=== PATIENT | male | born 1940 | race Caucasian/White ===

== ENCOUNTER 2021-05-17 08:56 | Outpatient (CLI) | payer MEDICARE, SELFPAY ==
--- NOTE | 2021-05-17 09:15 | CT_ITS ---
WS: [id number] CT CHEST, ABDOMEN AND PELVIS WITH CONTRAST HISTORY: ABNORMAL WEIGHT LOSS TECHNIQUE: Contiguous 5 mm axial imaging performed through the chest, abdomen and pelvis with IV cont rast, oral contrast has been provided. Coronal and sagittal reformats chest. Coronal and sagittal ref ormats through the abdomen and pelvis. All CT scans at [facility] use at least one of the se dose optimization techniques: automated exposure control; mA and/or kV adjustment per patient size (includes targeted exams where dose is matched to clinical indication); or iterative reconstruction. CONTRAST: Omnipaque 300; 95 mL IV. DLP: 2217.88 mGycm COMPARISON: 02/07/[address]: Large heterogeneous RIGHT substernal thyroid. The RIGHT gland is enlarged and extends over length of at least 7.4 cm into the upper mediastinum with displacement of the esophagus. Transverse d iameter of 3.7 cm and AP diameter of 4.5 cm. 2 mm nodule in the anterior LEFT upper lobe, image 26 of series 4. No suspicious pulmonary mass or nodule. No pericardial or pleural effusions. Very mild ath erosclerosis thoracic aorta. Pulmonary artery size is equal to the aorta. Benign calcified RIGHT kumar r lymph nodes. Esophagus is negative. Mild thoracic spondylosis. No destructive bone lesions. Abdomen CT: Contrast opacification is somewhat limited. No enhancing lesions are noted within the josseline er. There is a filling defect in the central lumen of the gallbladder consistent with a stone which w as also noted on the prior exam. Mild atrophy of the pancreas. No pancreatic mass. Normal size spleen with granulomata. No adrenal mass. No renal obstruction. Exophytic cyst measures 1.6 cm from the med ial RIGHT kidney, similar to the prior study also. No ascites or adenopathy. Partially calcified abdo angie aorta. 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 No GI tract obstruction. Prior appendectomy. There is moderate fecal retention throughout the colon. Pelvic CT: Mild thickening of the urinary bladder. Prostate gland is enlarged and encroaches into the bladder. Prostate measures 5.4 x 5.2 x 4.3 cm. No ascites or adenopathy within the pelvis. No destructive bone lesions. Sclerotic bone island in the LEFT femoral neck. CT/CT chest abd pel w con* IMPRESSION: 1. Large mass associated with the RIGHT thyroid extends substernal. 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 For further evaluation thyroid ultrasound can be obtained. 2. No suspicious pulmonary mass or adenopathy. 3. No metastatic disease noted within the abdomen or pelvis. 4. Cholelithiasis without evidence for acute cholecystitis. 5. Atherosclerosis thoracic and abdominal aortas and a small splenic artery ca lcified aneurysm. 6. Prior appendectomy. 7. Moderate fecal retention. 8. Prostate and gland enlargement.
[2021-05-17] MEDS: iohexol 300 mg/mL 50 mL Btl PO (09:16)
[2021-05-17 10:33] LABS: Blood Urea Nitrogen 15 mg/dL (8-23)
[2021-05-17] MEDS: iohexol 300 mg/mL 100 mL Btl IV (10:51)
== END 2021-05-17 08:57 | disposition home or self-care (01) ==
PROVIDERS: PCP Family Medicine; Visit Provider Family Medicine
DX: R63.4 Abnormal weight loss (principal); N40.0 Benign prostatic hyperplasia without lower urinary tract symptoms; K59.00 Constipation, unspecified; Q42.8 Congenital absence, atresia and stenosis of other parts of large intestine; I70.0 Atherosclerosis of aorta; K80.20 Calculus of gallbladder without cholecystitis without obstruction; E07.9 Disorder of thyroid, unspecified
CPT/HCPCS: 71260; 74177; 82565; 84520; Q9967

== ENCOUNTER → 2021-05-31 13:48 | Outpatient (BNVA) | payer MEDICARE, SELFPAY | PROVIDERS: PCP Family Medicine; Visit Provider Urology | DX: N40.1 Benign prostatic hyperplasia with lower urinary tract symptoms (principal); Z12.5 Encounter for screening for malignant neoplasm of prostate; G20 Parkinson's disease; R35.1 Nocturia | CPT/HCPCS: 81003; G0103 ==

== ENCOUNTER 2021-06-03 09:16 | Outpatient (CLI) | payer MEDICARE, SELFPAY ==
--- NOTE | 2021-06-03 09:30 | FL_ITS ---
WS: [email or web address] MODIFIED BARIUM SWALLOW HISTORY: Difficulty swallowing. FLUOROSCOPY TIME: 1.6 minutes. Modified barium swallow was performed by the speech pathologist. Fluoroscopy was provided with the pa tient in a lateral projection. Multiple food consistencies were provided. Patient swallowed all food mixtures without difficulty. There is mild residual in the vallecula of th e more solid foods. There was also a single episode of laryngeal penetration with the thin liquids. N o aspiration. Patient swallowed the barium tablet without difficulty. FL/FL barium swallow modifd [id number] IMPRESSION: No significant swallowing deficits. Single episode of laryngeal penetration wit h the thin liquids. No aspiration. Please see speech therapist report also for recommendations.
== END 2021-06-03 09:17 | disposition home or self-care (01) ==
LOC: RAD 09:21
PROVIDERS: PCP Family Medicine; Visit Provider Otolaryngology
DX: R13.10 Dysphagia, unspecified (principal)
CPT/HCPCS: 74230; 92611

== ENCOUNTER 2021-06-22 11:14 | Outpatient (CLI) | payer MEDICARE, SELFPAY ==
--- NOTE | 2021-06-22 11:00 | US_ITS ---
WS: [id number] THYROID ULTRASOUND HISTORY: DYSPHAGIA COMPARISON: CT chest 05/17/2021 Right lobe: 3.0 cm x 3.3 cm x 8.0 cm (w x ap x l). Volume: 41.3 cm3. Very large substernal thyroid. There is a heterogeneous enlarged gland with the borders be very diffi cult to visualize. Majority of the gland is a large mass filling the mid to lower portion of the glan d but difficult to measure accurately as the margins are not well visualized. There is some very mild increased vascularity. Left lobe: 1.7 cm x 2.8 cm x 5.0 cm (w x ap x l). Volume: 12.2 cm3. Mildly coarsened echotexture. No discrete nodule. Gland is also mildly enlarged. Isthmus: 0.8 cm. US/US thyroid [id number] IMPRESSION: 1. Markedly enlarged RIGHT thyroid. Measurements and evaluation is difficult a s this nodule extends substernal. Differential includes goiter. Neoplasm is not excluded. Due to its position this may be difficult to accurately biopsy. 2. Mildly enlarged LEFT thyroid with coarse echotexture.
== END 2021-06-22 11:15 | disposition home or self-care (01) ==
LOC: US 11:17
PROVIDERS: PCP Family Medicine; Visit Provider Otolaryngology
DX: R13.10 Dysphagia, unspecified (principal); E04.9 Nontoxic goiter, unspecified
CPT/HCPCS: 76536

== ENCOUNTER → 2021-10-04 13:05 | Outpatient (BNVA) | payer MEDICARE, SELFPAY | PROVIDERS: PCP Family Medicine; Visit Provider Nurse Practitioner Family | DX: N40.1 Benign prostatic hyperplasia with lower urinary tract symptoms (principal) | CPT/HCPCS: 81003 ==

== ENCOUNTER → 2022-04-04 14:09 | Outpatient (BNVA) | payer MEDICARE, SELFPAY | PROVIDERS: PCP Family Medicine; Visit Provider Urology | DX: N40.1 Benign prostatic hyperplasia with lower urinary tract symptoms (principal); N48.1 Balanitis; S31.809A Unspecified open wound of unspecified buttock, initial encounter; X58.XXXA Exposure to other specified factors, initial encounter | CPT/HCPCS: 51741; 51798; 81003; 99213 ==

== ENCOUNTER → 2022-04-24 13:10 | Outpatient (BNVA) | payer MEDICARE, SELFPAY | PROVIDERS: PCP Family Medicine; Visit Provider Thoracic Surgery (Cardiothoracic Vascular Surgery) | DX: Z09 Encounter for follow-up examination after completed treatment for conditions other than malignant neoplasm (principal) | CPT/HCPCS: 99203; 99213 ==

== ENCOUNTER → 2022-07-21 09:28 | Outpatient (BNVA) | payer MEDICARE, SELFPAY | PROVIDERS: PCP Family Medicine; Visit Provider Otolaryngology | DX: E04.9 Nontoxic goiter, unspecified (principal); R13.10 Dysphagia, unspecified; K21.9 Gastro-esophageal reflux disease without esophagitis; G47.33 Obstructive sleep apnea (adult) (pediatric); G20 Parkinson's disease | CPT/HCPCS: 99212; 99213 ==

== ENCOUNTER 2022-09-06 14:39 | Outpatient (CLI) | payer MEDICARE, SELFPAY ==
--- NOTE | 2022-09-06 15:00 | CT_ITS ---
WS: [id number] CT CHEST TECHNIQUE: Contrast enhanced CT of the chest with coronal and sagittal reformatted images. CLINICAL INFORMATION: thyroid goiter COMPARISON: None. DLP: 612.[address] scans at [facility] use at least one of these dose optimization techniques: automated e xposure control; mA and/or kV adjustment per patient size (includes targeted exams where dose is matc hed to clinical indication); or iterative reconstruction. FINDINGS: Calcified granulomas. Subpleural nodular opacity in the lingula at the level of the diaphra gm measuring 8 mm anteriorly. This is unchanged since May 17, 2020 [address] follow-up. No other suspicious pulmonary parenchymal opacities. There is an enhancing RIGHT thyroid mass extending into the upper mediastinum likely due to goiter de scribed on the neck CT. Mild RIGHT to LEFT mass effect on the trachea which remains patent. No medias tinal or hilar lymphadenopathy. Normal caliber thoracic aorta. Aortic calcification. Coronary calcifi cation. Normal GE junction. Adrenal glands are normal. Small RIGHT renal cyst. Normal portal vein and splenic vein. Hypertrophic changes thoracic spine. . CT/CT chest w con* [id number] IMPRESSION: 1. Previously described RIGHT thyroid substernal mass likely thyroid goiter me asures a few millimeters larger today extending into the upper mediastinum comp ared to May 17, 2021. Otherwise not significantly changed. 2. Stable mass affect on the trachea with mild narrowing. 3. Small subpleural nodular opacity in the lingula at the level of the diaphra gm measuring 8 mm anteriorly. This is unchanged since May 17, 2021. Recommen d [address] follow-up.
--- NOTE | 2022-09-06 15:30 | CT_ITS ---
WS: [id number] CT NECK TECHNIQUE: Contrast-enhanced CT of the neck with coronal and sagittal reformatted images. CLINICAL INFORMATION: thyroid goiter COMPARISON: Ultrasound June 22, 2021 DLP: 309.[address] scans at [facility] use at least one of these dose optimization techniques: automated e xposure control; mA and/or kV adjustment per patient size (includes targeted exams where dose is matc hed to clinical indication); or iterative reconstruction. FINDINGS: Parotid glands are normal. Segmental glands are normal. Normal posterior nasopharynx. Normal paraphar yngeal fat. No evidence of supraglottic or glottic mass. Normal subglottic airway. RIGHT thyroid mass extending into the upper mediastinum with RIGHT to LEFT mass effect on the trachea which remains pat ent. Enhancing RIGHT thyroid mass measuring 5.3 x 3.1 x 5.2 cm AP by transverse by craniocaudal. No d ominant nodules in the LEFT thyroid gland. No cervical lymphadenopathy. Lung apices are well aerated. Mastoid air cells well aerated. Mild spondylitic changes cervical spine . CT/CT neck w con* [id number] IMPRESSION: 1. No evidence of supraglottic or glottic mass. 2. Heterogeneously enhancing RIGHT thyroid mass likely goiter extending into t he upper mediastinum measuring 5.3 x 3.1 x 5.2 cm AP by transverse by craniocau diane. Mild RIGHT to LEFT mass effect on the trachea which remains patent. 3. No cervical lymphadenopathy. 4. Normal salivary glands.
[2022-09-06] MEDS: iohexol 350 mg/mL 500 mL Btl (per mL) IV ×2 (15:51)
[2022-09-06 15:57] LABS: Blood Urea Nitrogen 14 mg/dL (8-23)
== END 2022-09-06 14:40 | disposition home or self-care (01) ==
PROVIDERS: PCP Family Medicine; Visit Provider Otolaryngology
DX: E04.9 Nontoxic goiter, unspecified (principal)
CPT/HCPCS: 70491; 71260; 82565; 84520; Q9967

== ENCOUNTER → 2022-10-03 15:56 | Outpatient (BNVA) | payer MEDICARE, SELFPAY | PROVIDERS: PCP Family Medicine; Visit Provider Urology | DX: N40.1 Benign prostatic hyperplasia with lower urinary tract symptoms (principal); N48.1 Balanitis | CPT/HCPCS: 51741; 51798; 81003; 99213 ==

== ENCOUNTER → 2023-02-06 13:03 | Outpatient (BNVA) | payer MEDICARE, SELFPAY | PROVIDERS: PCP Family Medicine; Visit Provider Otolaryngology | DX: R13.10 Dysphagia, unspecified (principal); E04.9 Nontoxic goiter, unspecified; G20 Parkinson's disease; H61.22 Impacted cerumen, left ear | CPT/HCPCS: 69210; 99213 ==

== ENCOUNTER 2023-02-22 10:39 | Outpatient (CLI) | payer MEDICARE, SELFPAY ==
--- NOTE | 2023-02-22 10:45 | FL_ITS ---
WS: [id number] Modified barium swallow, 02/22/2023 Clinical Data: Other dysphagia Comparison: None. Fluoroscopy time: 2min [id number] # of spot films: Findings: The patient showed good oral propulsion. There was pharyngeal weakness. There is vallecular pooling a nd there is difficulty in clearing. No aspiration or penetration occurred. The barium tablet moved ra pidly to the gastroesophageal junction and there was minimal delay in esophageal emptying. FL/FL barium swallow modifd [id number] Impression: 1. Minimal pharyngeal weakness with vallecular pooling. 2. No aspiration or penetration. 3. Minimal delay in gastroesophageal emptying.
== END 2023-02-22 10:40 | disposition home or self-care (01) ==
LOC: RAD 10:43
PROVIDERS: PCP Family Medicine; Visit Provider Otolaryngology
DX: R13.10 Dysphagia, unspecified (principal)
CPT/HCPCS: 74230; 92611

== ENCOUNTER → 2023-03-06 14:30 | Outpatient (BNVA) | payer MEDICARE, SELFPAY | PROVIDERS: PCP Family Medicine; Visit Provider Urology | DX: N40.1 Benign prostatic hyperplasia with lower urinary tract symptoms (principal); N13.8 Other obstructive and reflux uropathy; N48.1 Balanitis; I95.1 Orthostatic hypotension; G20 Parkinson's disease; R35.81 Nocturnal polyuria; Z90.49 Acquired absence of other specified parts of digestive tract | CPT/HCPCS: 51798; 81003; 99213 ==

== ENCOUNTER → 2023-03-07 15:30 | Outpatient (BNVA) | payer MEDICARE, SELFPAY | PROVIDERS: PCP Family Medicine; Visit Provider Otolaryngology | DX: G20 Parkinson's disease (principal); R13.10 Dysphagia, unspecified | CPT/HCPCS: 99213 ==

== ENCOUNTER 2023-03-20 15:29 | Outpatient (CLI) | payer MEDICARE, SELFPAY ==
--- NOTE | 2023-03-20 15:39 | CT_ITS ---
WS: [id number] CT chest wo con [id number] HISTORY: SOLITARY PULMONARY NODULE TECHNIQUE: Axial imaging performed through the thorax. Coronal and sagittal reformats are submitted. All CT scans at [facility] use at least one of these dose optimization techniques: automated exposure control; mA and/or kV adjustment per patient size (includes targeted exams where dose is mat ched to clinical indication); or iterative reconstruction. CONTRAST: None DLP: 199.89 mGy.cm COMPARISON: 09/06/2022, 05/17/2021 and 02/07/2019 Lungs and central airway: Chronic emphysema. 9 mm nodule seen at the LEFT lung base in the lingula an teriorly is unchanged. This nodule was present on 05/17/2021 also. May be an area of atelectasis or sc ar. Very minimal increase in size since 2020. Marked hyperinflation. No additional mass or nodule. No pneumonia. Pleura: Normal. No pleural effusion. Heart and pericardium: Normal size heart with no pericardial effusion. Mediastinum and kumar: Calcified RIGHT hilar lymph nodes. Vessels: Moderate atherosclerosis aorta. Pulmonary artery is also prominent. Coronary artery calcific ations. Chest wall and lower neck: Markedly enlarged thyroid. Thyroid is substernal causing slight deviation of the trachea to the LEFT. These findings have been previously described consistent with a goiter. Upper abdomen: Suprarenal moderate calcification. Heavy calcification in the splenic artery. Variable density in the gallbladder is likely due to cholelithiasis. Stones were identified also in the gallb ladder on 09/06/2022. No adjacent inflammation. Marked fecal retention and constipation. Osseous structures: Minimal anterior wedging of T2. CT/CT chest wo con [id number] IMPRESSION: 1. Very minimal increase in size of the lingular nodule measuring 9 mm since 021. Recommend additional 6-[address] follow-up. If this no dule remains stable no further workup will be necessary. 2. Marked hyperexpansion from emphysema. 3. Moderate atherosclerosis aorta. 4. Substernal thyroid with deviation of the trachea to the LEFT. Most consiste nt with a goiter.
== END 2023-03-20 15:30 | disposition home or self-care (01) ==
PROVIDERS: PCP Family Medicine; Visit Provider Family Medicine
DX: R91.1 Solitary pulmonary nodule (principal); E04.9 Nontoxic goiter, unspecified; J43.9 Emphysema, unspecified; K59.00 Constipation, unspecified; K80.20 Calculus of gallbladder without cholecystitis without obstruction
CPT/HCPCS: 71250

== ENCOUNTER 2023-03-28 12:21 | Emergency (ER) | payer MEDICARE, SELFPAY ==
[2023-03-28 12:28] VITALS: BP 159/47; PULSE 67; RESP 18; TEMP 36.4; O2SAT 100; BMI 19.5
--- NOTE | 2023-03-28 12:40 | ECG_ITS ---
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 Measurements Intervals [place] Rate: 64 P: -9 IA: 129 QRS: -43 QRSD: 89 T: 72 QT: 329 QTc: 340 Interpretive Statements SINUS RHYTHM WITH OCCASIONAL SUPRAVENTRICULAR PREMATURE COMPLEXES LEFT AXIS DEVIATION [QRS AXIS < -30] POSSIBLE RIGHT VENTRICULAR CONDUCTION DELAY [RSR (QR) IN V1/V2] POSSIBLE SEPTAL MYOCARDIAL INFARCTION , PROBABLY OLD [30 ms Q WAVE IN V1/V2] No previous ECG available for comparison Electronically Signed On 03-28-2023 13:21:06 CDT by Memo Zarate M.D. [id number]
--- NOTE | 2023-03-28 12:40 | XRR_ITS ---
PROCEDURE INFORMATION: Exam: XR Chest Exam date and time: 03/28/2023 12:57 PM Age: 82 years old Clinical indication: Other: Weakness TECHNIQUE: Imaging protocol: Radiologic exam of the chest. Views: 1 view. COMPARISON: CT chest con [id number] 03/20/2023 4:00 PM FINDINGS: Lungs: Unremarkable. No consolidation. Pleural spaces: Unremarkable. No pleural effusion. No pneumothorax. Heart/Mediastinum: There is a circumscribed mass in the right paratracheal tissues at the level of the thoracic inlet. This finding was documented on chest CT examination and appears similar in size and location. A There is displacement of the trachea toward the left side. Bones/joints: Medullary bone infarction proximal metaphysis of the right humerus is seen. Soft tissues: Unremarkable XR/XR chest 1V portable [id number] IMPRESSION: 1. No acute findings. 2. Stable right paratracheal mass. 3. Medullary bone proximal right humerus
--- NOTE | 2023-03-28 12:41 | W.ED.WEAKNES ---
HPI - Weakness General: Chief complaint: Weakness Stated complaint: weakness Time Seen by Provider: 03/28/23 12:33 History of Present Illness: Patient presents to the ER by EMS with complaints of weakness and fatigue. Patient says he is from [place] and his 's name Marjan. Patient states he is tired and weak all over. Patient says he just wants us to find out what is going on. Patient said this is been going on for a long time. Review of Systems General: Reports: 10 or more systems reviewed and unremarkable except in HPI and below PFSH ED PFSH: Medical History BPH (benign prostatic hyperplasia) BPH loc w urin obs/LUTS Dysphagia GERD (gastroesophageal reflux disease) Parkinson disease Sleep apnea Urinary retention Surgical History H/O colonoscopy 04/24/2019 History of appendectomy Family History Mother , at age 83 Natural Father , at age 71 Heart attack Social History Smoking and tobacco status: never smoked Alcohol intake: never Substance/Drug Use: never Marital status: Current occupational status: retired Physical Exam Const: COMMON NORMALS: no acute distress, average body habitus, no limitations, healthy appearing, alert and well nourished HENMT: COMMON NORMALS: normocephalic, atraumatic, hearing grossly normal bilaterally, external ears normal, Normal external nose present and moist oral mucous membranes HEAD & SCALP: normocephalic and atraumatic NOSE: Normal external nose present EXTERNAL EAR: Yes external ears normal Neck/C-Spine: COMMON NORMALS: no JVD Chest: COMMONS NORMALS: normal inspection of the chest and normal palpation of entire chest wall Resp: COMMON NORMALS: normal respiratory effort, No retractions, No use of accessory muscles and clear to auscultation bilaterally AUSCULTATION: clear to auscultation bilaterally Cardio: COMMON NORMALS: no JVD, regular rate, regular rhythm, S1 normal heart sound present, S2 normal heart sound present, No gallops present (Cardio), No clicks present (Cardio), No murmurs present (Cardio) and No rub (Cardio) RATE: regular rate RHYTHM: regular rhythm HEART SOUNDS: S1 normal heart sound present and S2 normal heart sound present GI: COMMON NORMALS: Normal to inspection, nondistended, normoactive bowel sounds present, Soft to palpation, non-tender, No hepatosplenomegaly present and no masses PALPATION: Yes Soft to palpation and Yes No hepatosplenomegaly present Extremity: NARRATIVE EXTREMITY EXAM: No edema to bilateral lower extremities Neuro: SENSORIUM/ORIENTATION: Yes alert Course Vital Signs: Vital signs: Vital Signs Temperature 97.5 F L 03/28/23 12:28 Pulse Rate 62 03/28/23 14:03 Respiratory Rate 18 03/28/23 12:28 Blood Pressure 147/65 03/28/23 14:03 Pulse Oximetry 100 03/28/23 14:03 Oxygen Delivery Me thod Room Air 03/28/23 12:28 MDM - Weakness Medical Decision Making Patient presents to the ER with just generalized overall weakness and poor appetite. Lab work was obtained physical exam was done lab work revealed a urinary tract infection. Physical exam revealed patient may have bilateral conjunctivitis. Patient be placed on antibiotics for urine as well as antibiotic eyedrops. Patient be discharged home to the care of his . Patient should follow-up with his PCP in approximately 1 week. Differential Diagnosis Unlikely acute myocardial infarction, anemia, hypoglycemia, hypothyroidism, rhabdomyolysis, sepsis or dehydration Medical Records I reviewed the patient's medical records. Lab Data I reviewed the patient's lab results. 03/28/23 12:34 03/28/23 12:34 Laboratory Results WBC 4.5 10^3/uL (4.0-10.0) 03/28/23 12:34 RBC 4.16 10^6/uL (4.1-5.3) 03/28/23 12:34 Hgb 12.9 g/dL (11.7-16.6) 03/28/23 12:34 Hct 39.1 % (42.0-52.0) L 03/28/23 12:34 MCV 94.0 fl (80-94) 03/28/23 12:34 MCH 31.0 pg (28.0-34.0) 03/28/23 12:34 MCHC 33.0 g/dL (30.0-36.0) 03/28/23 12:34 RDW 12.9 % (12.1-15.1) 03/28/23 12:34 Plt Count 334 10^3/cmm (130-400) 03/28/23 12:34 MPV 9.2 fL (7.4-10.4) 03/28/23 12:34 Neut % (Auto) 56.9 % 03/28/23 12:34 Lymph % (Auto) 34.2 % 03/28/23 12:34 [place] % (Auto) 7.1 % 03/28/23 12:34 Eos % (Auto) 0.9 % 03/28/23 12:34 Baso % (Auto) 0.7 % 03/28/23 12:34 Neut # (Auto) 2.56 10^3/uL (1.8-7.7) 03/28/23 12:34 Lymph # (Auto) 1.5 10^3/uL (0.8-4.8) 03/28/23 12:34 [place] # (Auto) 0.3 10^3/uL (0.2-0.9) 03/28/23 12:34 Eos # (Auto) 0.0 10^3/uL (0.0-0.8) 03/28/23 12:34 Baso # (Auto) 0.0 10^3/uL (0.0-0.1) 03/28/23 12:34 Nucleated RBC % (auto) 0 % 03/28/23 12:34 Nucleated RBCs # 0.0 /100WBC 03/28/23 12:34 Sodium 138 mmol/L (136-145) 03/28/23 12:34 Potassium 4.9 mmol/L (3.5-5.1) 03/28/23 12:34 Chloride 103 mmol/L (98-107) 03/28/23 12:34 Carbon Dioxide 25 mmol/L (22-29) 03/28/23 12:34 Anion Gap 14.9 (5-19) 03/28/23 12:34 BUN 15 mg/dL (8-23) 03/28/23 12:34 Creatinine 0.8 mg/dL (0.7-1.2) 03/28/23 12:34 GFR Calculation Not Reportable 03/28/23 12:34 Glucose 81 mg/dL (65-115) 03/28/23 12:34 Calculated Osmolality 286 mOsm/kg (285-295) 03/28/23 12:34 Calcium 9.1 mg/dL (8.5-10.5) 03/28/23 12:34 Magnesium 2.1 mg/dL (1.7-2.3) 03/28/23 12:34 Total Bilirubin 0.5 mg/dL (0.15-1.2) 03/28/23 12:34 AST 11 U/L (0-40) 03/28/23 12:34 ALT < 5 U/L (0-41) 03/28/23 12:34 Alkaline Phosphatase 98 U/L (40-130) 03/28/23 12:34 Total Protein 6.0 g/dL (6.6-8.7) L 03/28/23 12:34 Albumin 3.2 g/dL (3.5-5.2) L 03/28/23 12:34 Globulin 2.8 g/dL (1.3-4.6) 03/28/23 12:34 Urine Color Yellow (Yellow) 03/28/23 12:56 Urine Appearance Clear (CLEAR) 03/28/23 12:56 Urine pH 6 (5-7) 03/28/23 12:56 Ur Specific [place] 1.020 (1.005-1.030) 03/28/23 12:56 Urine Protein Neg (Negative) 03/28/23 12:56 Urine Glucose (UA) Norm (Normal) 03/28/23 12:56 Urine Ketones 1+ (Negative) H 03/28/23 12:56 Urine Blood Neg (Negative) 03/28/23 12:56 Urine Nitrate Negative (Negative) 03/28/23 12:56 Urine Bilirubin Neg (Negative) 03/28/23 12:56 Urine Urobilinogen Norm mg/dL (Negative) 03/28/23 12:56 Ur Leukocyte Esterase 1+ (Negative) H 03/28/23 12:56 Urine RBC 0-4 /hpf (0-2) H 03/28/23 12:56 Urine WBC 0-4 /hpf (0-5) H 03/28/23 12:56 Ur Squamous Epith Cells 0-4 /hpf (0-5) H 03/28/23 12:56 Amorphous Sediment Not Reportable 03/28/23 12:56 Urine Bacteria Trace /hpf (NONE) 03/28/23 12:56 Hyaline Casts 5-10 /lpf H 03/28/23 12:56 Urine Opiates Screen Negative ng/mL (Negative) 03/28/23 12:56 Ur Barbiturates Screen Negative ng/mL (Negative) 03/28/23 12:56 Ur Phencyclidine Scrn Negative ng/mL (Negative) 03/28/23 12:56 Ur Amphetamines Screen Negative ng/mL (Negative) 03/28/23 12:56 U Benzodiazepines Scrn Negative ng/mL (Negative) 03/28/23 12:56 Urine Cocaine Screen Negative ng/mL (Negative) 03/28/23 12:56 U Marijuana (THC) Screen Negative ng/mL (Negative) 03/28/23 12:56 EKG Data EKG 1: I personally reviewed and interpreted this EKG as follows: EKG interpretation date: 03/28/23 EKG interpretation time: 12:55 Prior EKG tracings: not available for review Interpretation: EKG showed ventricular rate of 64 beats minute, [place] interval 129, QRS duration 89, QTc of 338, sinus rhythm with occasional PVC, left axis deviation, possible right ventricular conduction delay, Q waves in V1 V2 Discharge Plan Discharge Patient Disposition: Home Clinical Impression: Acute bacterial conjunctivitis of both eyes Urinary tract infection Qualifiers: Urinary tract infection type: acute cystitis Hematuria presence: with hematuria Qualified Code(s): N30.01 - Acute cystitis with hematuria Condition: Stable Prescriptions: New levofloxacin 500 mg tablet 500 mg PO DAILY 7 Days Qty: 7 0RF gentamicin 0.3 % drops 2 drp ophthalmic (eye) Q6H 7 Days Qty: 5 0RF No Action Rytary 23.75-95 mg capsule, extended release 4 cap PO TID@08,12,19 amantadine HCl 100 mg tablet 100 mg PO TID@08,12,19 iron 325 mg (65 mg iron) Tablet 325 mg PO BEDTIME mirtazapine 15 mg tablet 15 mg PO BEDTIME silodosin 4 mg capsule 4 mg PO DAILY@12 Vitamin B-12 1,000 mcg Tablet 1,000 mcg PO BEDTIME Discharge Orders: Discharge ED (Routine); Ordered 03/28/23 Ordered By: Carlyle Covarrubias Referrals: Gianna Liu MD [Primary Care Provider] - 1 week Patient Instructions: Conjunctivitis (ED), Urinary Tract Infection - Men Coding Level of Care Code ED Broadcast Traffic Coordinator for Didi Hendricks
[2023-03-28 13:05] LABS: Basophils % 0.7 %; Eosinophils % 0.9 %; Hematocrit 39.1 % (42.0-52.0); Hemoglobin 12.9 g/dL (11.7-16.6); Lymphocytes # 1.5 10^3/uL (0.8-4.8); Lymphocytes % 34.2 %; Mean Platelet Volume 9.2 fL (7.4-10.4); Monocytes # 0.3 10^3/uL (0.2-0.9); Monocytes % 7.1 %; Neutrophils # 2.56 10^3/uL (1.8-7.7); Neutrophils % 56.9 %; Nucleated Red Blood Cells % 0 %; Platelet Count 334 10^3/cmm (130-400); Red Blood Count 4.16 10^6/uL (4.1-5.3); Red Cell Distribution Width 12.9 % (12.1-15.1); White Blood Count 4.5 10^3/uL (4.0-10.0)
--- NOTE | 2023-03-28 13:20 | PC.PHAR ---
pt is from [facility]-pts gives the pt his medications-pts states still taking this dose of rytary er 23.75-95mg take 4 caps tid -pts states the dr told them to finish this dose and then go to the rytary er 61.25-245mg filled 01/17/23 90d/s-
[2023-03-28 13:26] LABS: Alanine Aminotransferase < 5 U/L (0-41); Albumin Level 3.2 g/dL (3.5-5.2); Alkaline Phosphatase 98 U/L (40-130); Aspartate Amino Transferase 11 U/L (0-40); Blood Urea Nitrogen 15 mg/dL (8-23); Calcium 9.1 mg/dL (8.5-10.5); Carbon Dioxide 25 mmol/L (22-29); Chloride 103 mmol/L (98-107); Creatinine Clr Calc Pharmacy 71.0713; Globulin 2.8 g/dL (1.3-4.6); Glucose 81 mg/dL (65-115); Magnesium 2.1 mg/dL (1.7-2.3); Osmolality Calculated 286 mOsm/kg (285-295); Sodium 138 mmol/L (136-145); Total Bilirubin 0.5 mg/dL (0.15-1.2)
[2023-03-28 13:31] LABS: Glucose Urine UA Norm (Normal); Protein Urine Neg (Negative); Urine Appearance Clear (CLEAR); Urine Color Yellow (Yellow); pH Urine 6 (5-7)
[2023-03-28 13:32] LABS: Add Urine Microscopic? YES; Bilirubin Urine Neg (Negative); Blood Urine Neg (Negative); Ketones Urine 1+ (Negative); Leukocyte Esterase Urine 1+ (Negative); Nitrate Urine Negative (Negative); Urobilinogen Urine Norm (Negative)
[2023-03-28 13:32] LABS: Anion Gap 14.9 (5-19); Potassium 4.9 mmol/L (3.5-5.1)
[2023-03-28 13:39] LABS: Amphetamines Screen Urine Negative (Negative); Barbiturates Screen Urine Negative (Negative); Benzodiazepines Screen Urine Negative (Negative); Cocaine Screen Urine Negative (Negative); Opiate Screen Urine Negative (Negative); PCP Screen Urine Negative (Negative); THC Screen Urine Negative (Negative)
[2023-03-28 14:03] VITALS: BP 147/65; PULSE 62; O2SAT 100
[2023-03-28 14:27] LABS: Bacteria Urine TRACE /hpf; RBC Urine 0-4 /hpf (0-2); Squamous Epithelial Cell Urine 0-4 /hpf (0-5); WBC Urine 0-4 /hpf (0-5)
[2023-03-28 14:28] LABS: Add Urine Culture? No
[2023-03-28 14:54] VITALS: BP 151/64; PULSE 66; O2SAT 99
== END 2023-03-28 15:06 | disposition home or self-care (01) ==
PROVIDERS: Emergency Provider Emergency Medicine; PCP Family Medicine
DX: H10.33 Unspecified acute conjunctivitis, bilateral (principal); N39.0 Urinary tract infection, site not specified
CPT/HCPCS: 71045; 80053; 80306; 81001; 83735; 85025; 93005; 99285

== ENCOUNTER 2023-04-02 17:44 | Outpatient (CLI) | payer MEDICARE, SELFPAY ==
[2023-04-02 18:06] LABS: Add Urine Culture? No; Add Urine Microscopic? YES; Bacteria Urine TRACE /hpf; Bilirubin Urine Neg (Negative); Blood Urine Neg (Negative); Coarse Granular Casts Urine 0-4 /lpf; Glucose Urine UA Norm (Normal); Ketones Urine 1+ (Negative); Leukocyte Esterase Urine Trace (Negative); Mucus Urine TRACE /hpf; Nitrate Urine Negative (Negative); Protein Urine Neg (Negative); Urine Appearance Clear (CLEAR); Urine Color Yellow (Yellow); Urobilinogen Urine 1 mg/dL (Negative); WBC Urine 15-25 /hpf (0-5); pH Urine 5 (5-7)
== END 2023-04-02 17:45 | disposition home or self-care (01) ==
PROVIDERS: PCP Family Medicine; Visit Provider Family Medicine
DX: N39.0 Urinary tract infection, site not specified (principal)
CPT/HCPCS: 81001; 87086

== ENCOUNTER 2023-04-03 09:01 | Emergency (ER) | payer MEDICARE, SELFPAY ==
[2023-04-03 09:02] VITALS: BP 147/70; PULSE 66; TEMP 36.7; O2SAT 98; BMI 18.8
--- NOTE | 2023-04-03 09:07 | XR_ITS ---
WS: [email or web address] Exam: XR chest 1V portable [id number] Date/Time of Exam: 04/03/2023 9:08 AM Reason For Exam: dyspnea/cough Comparison 03/28/2023. The lungs are fully expanded and clear. Heart size is normal. No pleural effusions. Again noted is a mediastinal mass with leftward tracheal deviation unchanged in appearance. Regional bony elements are intact. Bone infarct in the proximal right humerus. XR/XR chest 1V portable [id number] IMPRESSION: 1. No acute cardiopulmonary finding. 2. 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 The appearance is unchanged.
--- NOTE | 2023-04-03 09:07 | ECG_ITS ---
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 Measurements Intervals [place] Rate: 63 P: 38 IA: 148 QRS: -44 QRSD: 92 T: 71 QT: 406 QTc: 416 Interpretive Statements SINUS RHYTHM WITH SINUS ARRHYTHMIA LEFT AXIS DEVIATION [QRS AXIS < -30] INCOMPLETE RIGHT BUNDLE BRANCH BLOCK [90+ ms QRS DURATION, TERMINAL R IN V1/V2, 40+ ms S IN I/aVL/V4/V5/V6] SEPTAL MYOCARDIAL INFARCTION , OF INDETERMINATE AGE [40+ ms Q WAVE IN V1/V2] Compared to ECG 03/28/2023 12:55:02 Incomplete right bundle-branch block now present Myocardial infarct finding still present Electronically Signed On 04-05-2023 9:54:54 CDT by Leigha Hammond M.D. [id number]
[2023-04-03 09:30] LABS: Basophils % 0.6 %; Eosinophils # 0.1 10^3/uL (0.0-0.8); Hematocrit 36.3 % (42.0-52.0); Hemoglobin 11.5 g/dL (11.7-16.6); Lymphocytes # 1.3 10^3/uL (0.8-4.8); Lymphocytes % 26.6 %; Mean Corpuscular HGB Conc 31.7 g/dL (30.0-36.0); Mean Corpuscular Hemoglobin 30.1 pg (28.0-34.0); Mean Platelet Volume 8.8 fL (7.4-10.4); Monocytes # 0.3 10^3/uL (0.2-0.9); Monocytes % 6.7 %; Neutrophils # 3.22 10^3/uL (1.8-7.7); Neutrophils % 63.9 %; Nucleated Red Blood Cells % 0 %; Platelet Count 319 10^3/cmm (130-400); Red Blood Count 3.82 10^6/uL (4.1-5.3); Red Cell Distribution Width 12.9 % (12.1-15.1)
[2023-04-03 09:35] LABS: Add Urine Microscopic? NO; Charge for UA Resulting for Rev
--- NOTE | 2023-04-03 09:36 | ED_ITS ---
HPI - Altered Mental Status General: Chief Complaint: Altered Mental Status Stated Complaint: AMS Time Seen by Provider: 04/03/23 09:04 [facility] ED PFSH: Medical History BPH (benign prostatic hyperplasia) BPH loc w urin obs/LUTS Dysphagia GERD (gastroesophageal reflux disease) Parkinson disease Sleep apnea Urinary retention Surgical History H/O colonoscopy 04/24/2019 History of appendectomy Family History Mother , at age 83 Natural Father , at age 71 Heart attack Social History Smoking and tobacco status: never smoked Alcohol intake: never Substance/Drug Use: never Marital status: Current occupational status: retired Course Vital Signs: Vital signs: Vital Signs Temperature 98.1 F 04/03/23 09:02 Pulse Rate 66 04/03/23 09:02 Blood Pressure 147/70 04/03/23 09:02 Pulse Oximetry 98 04/03/23 09:02 Oxygen Delivery Me thod Room Air 04/03/23 09:02 MDM - Altered Mental Status Lab Data 04/03/23 08:49 04/03/23 08:49 Radiology Impressions Chest X-Ray 04/03/23 09:07 IMPRESSION: 1. No acute cardiopulmonary finding. 2. 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 The appearance is unchanged. Laboratory Results WBC 5.0 10^3/uL (4.0-10.0) 04/03/23 08:49 RBC 3.82 10^6/uL (4.1-5.3) L 04/03/23 08:49 Hgb 11.5 g/dL (11.7-16.6) L 04/03/23 08:49 Hct 36.3 % (42.0-52.0) L 04/03/23 08:49 MCV 95.0 fl (80-94) H 04/03/23 08:49 MCH 30.1 pg (28.0-34.0) 04/03/23 08:49 MCHC 31.7 g/dL (30.0-36.0) 04/03/23 08:49 RDW 12.9 % (12.1-15.1) 04/03/23 08:49 Plt Count 319 10^3/cmm (130-400) 04/03/23 08:49 MPV 8.8 fL (7.4-10.4) 04/03/23 08:49 Neut % (Auto) 63.9 % 04/03/23 08:49 Lymph % (Auto) 26.6 % 04/03/23 08:49 [place] % (Auto) 6.7 % 04/03/23 08:49 Eos % (Auto) 2.0 % 04/03/23 08:49 Baso % (Auto) 0.6 % 04/03/23 08:49 Neut # (Auto) 3.22 10^3/uL (1.8-7.7) 04/03/23 08:49 Lymph # (Auto) 1.3 10^3/uL (0.8-4.8) 04/03/23 08:49 [place] # (Auto) 0.3 10^3/uL (0.2-0.9) 04/03/23 08:49 Eos # (Auto) 0.1 10^3/uL (0.0-0.8) 04/03/23 08:49 Baso # (Auto) 0.0 10^3/uL (0.0-0.1) 04/03/23 08:49 Nucleated RBC % (auto) 0 % 04/03/23 08:49 Nucleated RBCs # 0.0 /100WBC 04/03/23 08:49 Discharge Plan Discharge Condition: Stable Prescriptions: No Action Rytary 23.75-95 mg capsule, extended release 4 cap PO TID@,, amantadine HCl 100 mg tablet 100 mg PO TID@, iron 325 mg (65 mg iron) Tablet 325 mg PO BEDTIME mirtazapine 15 mg tablet 15 mg PO BEDTIME silodosin 4 mg capsule 4 mg PO DAILY@12 Vitamin B-12 1,000 mcg Tablet 1,000 mcg PO BEDTIME levofloxacin 500 mg tablet 500 mg PO DAILY 7 Days Qty: 7 0RF gentamicin 0.3 % drops 2 drp ophthalmic (eye) Q6H 7 Days Qty: 5 0RF Referrals: Gianna Liu MD [Primary Care Provider] - Patient Instructions: Altered Mental Status (ED), Alcohol Intoxication (ED), Benzodiazepine Use Disorder (ED), Concussion (ED), Dementia (ED), Subarachnoid Hemorrhage (GEN), Hyponatremia (ED), Non-diabetic Hypoglycemia (ED), Hypoglycemia in a Person with Diabetes (ED) Coding Level of Care Code ED Pharmacy Assistant for Didi Hendricks
[2023-04-03 09:42] LABS: Bilirubin Urine Neg (Negative); Blood Urine Neg (Negative); Glucose Urine UA Norm (Normal); Ketones Urine Negative (Negative); Leukocyte Esterase Urine Negative (Negative); Nitrate Urine Negative (Negative); Protein Urine Neg (Negative); Specific Gravity, Urine 1.015 (1.005-1.030); Urine Appearance Clear (CLEAR); Urine Color Light yellow (Yellow); Urobilinogen Urine Norm (Negative); pH Urine 7 (5-7)
[2023-04-03 09:47] LABS: Alanine Aminotransferase < 5 U/L (0-41); Albumin Level 3.1 g/dL (3.5-5.2); Alkaline Phosphatase 86 U/L (40-130); Aspartate Amino Transferase 12 U/L (0-40); Blood Urea Nitrogen 11 mg/dL (8-23); Calcium 8.7 mg/dL (8.5-10.5); Carbon Dioxide 28 mmol/L (22-29); Chloride 105 mmol/L (98-107); Globulin 2.5 g/dL (1.3-4.6); Glucose 68 mg/dL (65-115); Lipase 11 U/L (13-60); Osmolality Calculated 290 mOsm/kg (285-295); Sodium 141 mmol/L (136-145); Total Bilirubin 0.5 mg/dL (0.15-1.2); Total Protein 5.6 g/dL (6.6-8.7)
[2023-04-03 09:48] LABS: Anion Gap 12.6 (5-19); Potassium 4.6 mmol/L (3.5-5.1)
[2023-04-03 09:49] LABS: Troponin(5th) Baseline 32 ng/L (0-15)
--- NOTE | 2023-04-03 09:54 | W.ED.GENADLT ---
HPI - General Adult General: Chief complaint: Altered Mental Status Stated complaint: AMS Time Seen by Provider: 04/03/23 09:04 Source: patient Mode of arrival: EMS History of Present Illness: 82-year-old male presents emergency room via EMS with complaints of altered mental status. he is awake and alert when I seen him. He is aware that he has been having difficulty with speech and swallowing at times tells me its been a longstanding issue and has not changed recently he is also aware that he is previously had UTIs they are concerned he may have another bladder infection. He denies any fevers denies any chest or abdominal pain. He has a history of Parkinson's disease. Onset (ago): hour(s) Associated symptoms: Deny chest pain, confusion, cough, diaphoresis, decreased appetite, dyspnea, fevers/chills, headache(s), malaise, nausea, rash, palpitations, seizures, short of breath, syncope, vomiting or weakness Treatments prior to arrival: none Review of Systems Const: Denies: fever(s), chills, malaise or diaphoresis Card: Denies: chest pain, palpitations or syncope Resp: Denies: dyspnea GI: Denies: abdominal pain, nausea or vomiting : Denies: flank pain, dysuria, urinary frequency or urinary urgency Skin/Breast: Denies: rash Neuro: Denies: headache(s) or confusion PFSH ED PFSH: Medical History BPH (benign prostatic hyperplasia) BPH loc w urin obs/LUTS Dysphagia GERD (gastroesophageal reflux disease) Parkinson disease Sleep apnea Urinary retention Surgical History H/O colonoscopy 04/24/2019 History of appendectomy Family History Mother , at age 83 Natural Father , at age 71 Heart attack Social History Smoking and tobacco status: never smoked Alcohol intake: never Substance/Drug Use: never Marital status: Current occupational status: retired Physical Exam Const: COMMON NORMALS: no acute distress GENERAL APPEARANCE: cooperative and comfortable ORIENTATION/CONSCIOUSNESS: Yes awake, Yes oriented to person, Yes oriented to place and Yes oriented to time HENMT: COMMON NORMALS: normocephalic, atraumatic and hearing grossly normal bilaterally HEAD & SCALP: normocephalic and atraumatic Resp: COMMON NORMALS: normal respiratory effort, No retractions, No use of accessory muscles and clear to auscultation bilaterally AUSCULTATION: clear to auscultation bilaterally Cardio: COMMON NORMALS: regular rate, regular rhythm and No murmurs present (Cardio) RATE: regular rate RHYTHM: regular rhythm GI: COMMON NORMALS: Soft to palpation and No hepatosplenomegaly present AUSCULTATION: Yes normoactive bowel sounds PALPATION: Yes Soft to palpation, No Tenderness to palpation present (GI), No Guarding due to palpation present (GI) and Yes No hepatosplenomegaly present Extremity: COMMON NORMALS: normal to inspection, capillary refill normal, no clubbing, cyanosis or edema, no calf tenderness and no pedal edema Neuro: SENSORIUM/ORIENTATION: Yes oriented to person, Yes oriented to place and Yes oriented to time Skin: COMMON NORMALS: no rashes or lesions noted GENERAL SKIN EXAM: no rashes or lesions noted Course Vital Signs: Vital signs: Vital Signs Temperature 98.1 F 04/03/23 09:02 Pulse Rate 85 04/03/23 13:50 Respiratory Rate 16 04/03/23 13:50 Blood Pressure 142/70 04/03/23 13:50 Pulse Oximetry 97 04/03/23 13:50 Oxygen Delivery Me thod Room Air 04/03/23 09:02 MDM - General Adult Medical Decision Making Initially presented for altered mental status been intermittent for last couple of days he is awake alert and oriented now work-up was negative for any signs of infection he has no focal neurologic deficits noted when he went to get him up to discharge states he could not stand or walk he had too much tremor in his legs. 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 There is no acute changes. Offered to call the neurologist that he sees usually for recommendations on an increase of his Sinemet dose they have decided that prefer to do that themselves. We will discharge him back to the correction. Suspect he may need a higher level of care is currently assisted living. Medical Records I reviewed the patient's medical records. Lab Data I reviewed the patient's lab results. 04/03/23 08:49 04/03/23 08:49 Radiology Impressions Chest X-Ray 04/03/23 09:07 IMPRESSION: 1. No acute cardiopulmonary finding. 2. 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 The appearance is unchanged. Head CT 04/03/23 12:15 IMPRESSION: There are no acute concerning abnormalities. Laboratory Results WBC 5.0 10^3/uL (4.0-10.0) 04/03/23 08:49 RBC 3.82 10^6/uL (4.1-5.3) L 04/03/23 08:49 Hgb 11.5 g/dL (11.7-16.6) L 04/03/23 08:49 Hct 36.3 % (42.0-52.0) L 04/03/23 08:49 MCV 95.0 fl (80-94) H 04/03/23 08:49 MCH 30.1 pg (28.0-34.0) 04/03/23 08:49 MCHC 31.7 g/dL (30.0-36.0) 04/03/23 08:49 RDW 12.9 % (12.1-15.1) 04/03/23 08:49 Plt Count 319 10^3/cmm (130-400) 04/03/23 08:49 MPV 8.8 fL (7.4-10.4) 04/03/23 08:49 Neut % (Auto) 63.9 % 04/03/23 08:49 Lymph % (Auto) 26.6 % 04/03/23 08:49 [place] % (Auto) 6.7 % 04/03/23 08:49 Eos % (Auto) 2.0 % 04/03/23 08:49 Baso % (Auto) 0.6 % 04/03/23 08:49 Neut # (Auto) 3.22 10^3/uL (1.8-7.7) 04/03/23 08:49 Lymph # (Auto) 1.3 10^3/uL (0.8-4.8) 04/03/23 08:49 [place] # (Auto) 0.3 10^3/uL (0.2-0.9) 04/03/23 08:49 Eos # (Auto) 0.1 10^3/uL (0.0-0.8) 04/03/23 08:49 Baso # (Auto) 0.0 10^3/uL (0.0-0.1) 04/03/23 08:49 Nucleated RBC % (auto) 0 % 04/03/23 08:49 Nucleated RBCs # 0.0 /100WBC 04/03/23 08:49 Sodium 141 mmol/L (136-145) 04/03/23 08:49 Potassium 4.6 mmol/L (3.5-5.1) 04/03/23 08:49 Chloride 105 mmol/L (98-107) 04/03/23 08:49 Carbon Dioxide 28 mmol/L (22-29) 04/03/23 08:49 Anion Gap 12.6 (5-19) 04/03/23 08:49 BUN 11 mg/dL (8-23) 04/03/23 08:49 Creatinine 0.8 mg/dL (0.7-1.2) 04/03/23 08:49 GFR Calculation Not Reportable 04/03/23 08:49 Glucose 68 mg/dL (65-115) 04/03/23 08:49 Calculated Osmolality 290 mOsm/kg (285-295) 04/03/23 08:49 Lactic Acid 0.5 mmol/L (0.5-2.2) 04/03/23 09:48 Calcium 8.7 mg/dL (8.5-10.5) 04/03/23 08:49 Total Bilirubin 0.5 mg/dL (0.15-1.2) 04/03/23 08:49 AST 12 U/L (0-40) 04/03/23 08:49 ALT < 5 U/L (0-41) 04/03/23 08:49 Alkaline Phosphatase 86 U/L (40-130) 04/03/23 08:49 Troponin T Baseline 32 ng/L (0-15) H 04/03/23 08:49 Troponin T 120 Minute 26.80 ng/L (0-15) H 04/03/23 10:49 Delta Troponin T -5.20 ABS# (0-10) L 04/03/23 10:49 Total Protein 5.6 g/dL (6.6-8.7) L 04/03/23 08:49 Albumin 3.1 g/dL (3.5-5.2) L 04/03/23 08:49 Globulin 2.5 g/dL (1.3-4.6) 04/03/23 08:49 Lipase 11 U/L (13-60) L 04/03/23 08:49 Urine Color Light yellow (Yellow) 04/03/23 09:31 Urine Appearance Clear (CLEAR) 04/03/23 09:31 Urine pH 7 (5-7) 04/03/23 09:31 Ur Specific [place] 1.015 (1.005-1.030) 04/03/23 09:31 Urine Protein Neg (Negative) 04/03/23 09:31 Urine Glucose (UA) Norm (Normal) 04/03/23 09:31 Urine Ketones Negative (Negative) 04/03/23 09:31 Urine Blood Neg (Negative) 04/03/23 09:31 Urine Nitrate Negative (Negative) 04/03/23 09:31 Urine Bilirubin Neg (Negative) 04/03/23 09:31 Urine Urobilinogen Norm mg/dL (Negative) 04/03/23 09:31 Ur Leukocyte Esterase Negative (Negative) 04/03/23 09:31 Discharge Plan Discharge Patient Disposition: Home Clinical Impression: Parkinson's disease (tremor, stiffness, slow motion, unstable posture), Delirium due to general medical condition Condition: Stable Prescriptions: No Action Rytary 23.75-95 mg capsule, extended release 4 cap PO TID@, amantadine HCl 100 mg tablet 100 mg PO TID@ ferrous sulfate [iron] 325 mg (65 mg iron) Tablet 325 mg PO BEDTIME mirtazapine 15 mg tablet 15 mg PO BEDTIME silodosin 4 mg capsule 4 mg PO DAILY@12 cyanocobalamin (vitamin B-12) [Vitamin B-12] 1,000 mcg Tablet 1,000 mcg PO BEDTIME levofloxacin 500 mg tablet 500 mg PO DAILY 7 Days Qty: 7 0RF gentamicin 0.3 % drops 2 drp ophthalmic (eye) Q6H 7 Days Qty: 5 0RF Discharge Orders: Discharge ED (Routine); Ordered 04/03/23 Ordered By: Hipolito Whaley Referrals: Gianna Liu MD [Primary Care Provider] - Discharge Diet: Usual diet Discharge Activity: Resume usual activity Patient Instructions: Opioid Safety, Pain Management Coding Level of Care Code ED Command Post Craftsman for Didi Hendricks
[2023-04-03 10:30] LABS: Lactic Sepsis W/Reflex 0.5 mmol/L (0.5-2.2)
[2023-04-03 11:01] VITALS: BP 135/70; PULSE 74; O2SAT 97
--- NOTE | 2023-04-03 11:38 | ECG_ITS ---
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 Measurements Intervals [place] Rate: 61 P: 56 [place]: 158 QRS: -45 QRSD: 97 T: 72 QT: 447 QTc: 450 Interpretive Statements SINUS RHYTHM WITH SINUS ARRHYTHMIA LEFT AXIS DEVIATION [QRS AXIS < -30] INCOMPLETE RIGHT BUNDLE BRANCH BLOCK [90+ ms QRS DURATION, TERMINAL R IN V1/V2, 40+ ms S IN I/aVL/V4/V5/V6] SEPTAL MYOCARDIAL INFARCTION , OF INDETERMINATE AGE [40+ ms Q WAVE IN V1/V2] Compared to ECG 04/03/2023 09:14:32 No significant changes Electronically Signed On 04-05-2023 12:25:51 CDT by Leigha Hammond M.D. [id number]
--- NOTE | 2023-04-03 12:15 | CTR_ITS ---
PROCEDURE INFORMATION: Exam: CT Head Without Contrast Exam date and time: 04/03/2023 12:20 PM Age: 82 years old Clinical indication: Altered mental status/memory loss and cerebral degeneration; Additional info: Amd/parkinsons TECHNIQUE: Imaging protocol: Computed tomography of the head without contrast. Radiation optimization: All CT scans at this facility use at least one of these dose optimization techniques: automated exposure control; mA and/or kV adjustment per patient size (includes targeted exams where dose is matched to clinical indication); or iterative reconstruction. REPORTING DATA: Count of CT and Cardiac NM exams in prior 12 months: This patient has received 3 known CTs and 0 known cardiac nuclear medicine studies in the 12 months prior to the current study. COMPARISON: CT neck w con* [id number] 09/06/2022 3:28 PM RADIATION DOSE METRICS: Total DLP (mGy-cm): 1217.83 FINDINGS: Brain: Moderate white matter disease and volume loss are identified. There is no acute infarct or edema. No hemorrhage. Cerebral ventricles: No ventriculomegaly. Paranasal sinuses: Visualized sinuses are unremarkable. No fluid levels. Mastoid air cells: Visualized mastoid air cells are well aerated. Bones/joints: Unremarkable. No acute fracture. Soft tissues: Unremarkable. CT/CT head wo con* [id number] IMPRESSION: There are no acute concerning abnormalities.
[2023-04-03 13:50] VITALS: BP 142/70; PULSE 85; RESP 16; O2SAT 97
== END 2023-04-03 13:51 | disposition home or self-care (01) ==
PROVIDERS: Emergency Provider Family Medicine; PCP Family Medicine
DX: G20 Parkinson's disease (principal); F05 Delirium due to known physiological condition
CPT/HCPCS: 36415; 70450; 71045; 80053; 81003; 83605; 83690; 84484; 85025; 93005; 99285

== ENCOUNTER 2023-04-03 17:03 | Observation (INO) | payer MEDICARE, SELFPAY ==
[2023-04-03 17:05] VITALS: BP 111/67; PULSE 75; TEMP 36.8; O2SAT 98; BMI 18.6
--- NOTE | 2023-04-03 17:06 | CTR_ITS ---
PROCEDURE INFORMATION: Exam: CT Head Without Contrast Exam date and time: 04/03/2023 5:24 PM Age: 82 years old Clinical indication: Injury or trauma; Fall; Concussion/head injury; Consciousness not specified TECHNIQUE: Imaging protocol: Computed tomography of the head without contrast. Radiation optimization: All CT scans at this facility use at least one of these dose optimization techniques: automated exposure control; mA and/or kV adjustment per patient size (includes targeted exams where dose is matched to clinical indication); or iterative reconstruction. REPORTING DATA: Count of CT and Cardiac NM exams in prior 12 months: This patient has received 3 known CTs and 0 known cardiac nuclear medicine studies in the 12 months prior to the current study. COMPARISON: CT head wo con* [id number] 04/03/2023 12:20 PM RADIATION DOSE METRICS: Total DLP (mGy-cm): 1235.38 FINDINGS: Brain: Moderate white matter disease and volume loss are identified. There is no acute infarct or edema. No hemorrhage. Cerebral ventricles: No ventriculomegaly. Paranasal sinuses: Visualized sinuses are unremarkable. No fluid levels. Mastoid air cells: Visualized mastoid air cells are well aerated. Bones/joints: Unremarkable. No acute fracture. Soft tissues: Unremarkable. CT/CT head wo con* [id number] IMPRESSION: There are no acute concerning abnormalities.
--- NOTE | 2023-04-03 17:06 | XRR_ITS ---
PROCEDURE INFORMATION: Exam: XR Thoracic Spine Exam date and time: 04/03/2023 5:30 PM Age: 82 years old Clinical indication: Injury or trauma; Fall; Blunt trauma (contusions or hematomas) TECHNIQUE: Imaging protocol: Radiologic exam of the thoracic spine. Views: 3 views. COMPARISON: CR XR chest 1V portable [id number] 04/03/2023 9:16 AM FINDINGS: Bones/joints: No acute fracture. Normal alignment. Degenerative change is identified in the spine. Soft tissues: Unremarkable. XR/XR thoracic spine 3V* [id number] IMPRESSION: There is no evidence for acute fracture or malalignment. If there is desire for further evaluation, a CT scan could be performed.
--- NOTE | 2023-04-03 17:27 | W.ED.FALL ---
HPI - Fall General: Chief Complaint: Fall Stated Complaint: fall N/V Time Seen by Provider: 04/03/23 17:04 Source: patient and EMS Mode of arrival: EMS Limitations: no limitations History of Present Illness: 82-year-old male with history of Parkinson's and has frequent falls he is here from [facility] after falling he states he hit his head on the wall he does have a laceration to the crown of his head denies any loss of conscious has some slight headache he also complains of some thoracic pain as well denies any lower extremity pain denies any neck pain. Associated symptoms-after fall: Reports headache(s); Denies abdominal pain, chest pain or neck pain Review of Systems Const: Denies: fever(s) or chills Eyes: Denies: eye discomfort ENMT: Denies: throat pain or dental pain Card: Denies: chest pain Resp: Denies: dyspnea GI: Denies: abdominal pain, nausea, vomiting or diarrhea Musc: Reports: back pain; Denies: neck pain Skin/Breast: Denies: rash Neuro: Reports: headache(s) PFSH ED PFSH: Medical History BPH (benign prostatic hyperplasia) BPH loc w urin obs/LUTS Dysphagia GERD (gastroesophageal reflux disease) Parkinson disease Sleep apnea Urinary retention Surgical History H/O colonoscopy 04/24/2019 History of appendectomy Family History Mother , at age 83 Natural Father , at age 71 Heart attack Social History Smoking and tobacco status: never smoked Alcohol intake: never Substance/Drug Use: never Marital status: Current occupational status: retired Physical Exam Const: COMMON NORMALS: no acute distress and patient oriented x3 HENMT: COMMON NORMALS: normocephalic; head/scalp not atraumatic (1 cm laceration to crown of the head) HEAD & SCALP: normocephalic; not atraumatic (1 cm laceration to crown of the head) Eye: COMMON NORMALS: conjunctivae normal CONJUNCTIVA: Yes conjunctivae normal Neck/C-Spine: CERVICAL SPINE: Yes cervical ROM normal and No Cervical spine tenderness Chest: COMMONS NORMALS: normal inspection of the chest and normal palpation of entire chest wall Resp: COMMON NORMALS: normal respiratory effort Cardio: COMMON NORMALS: regular rate and regular rhythm RATE: regular rate RHYTHM: regular rhythm GI: INSPECTION: Yes normal to inspection Back/Pelvis: OTHER: Slight pain over thoracic spine no obvious deformities pain is minimal. Extremity: COMMON NORMALS: normal to inspection and full ROM Neuro: COMMON NORMALS: patient oriented x3 Psych: COMMON NORMALS: mental status grossly normal Skin: COMMON NORMALS: no rashes or lesions noted GENERAL SKIN EXAM: no rashes or lesions noted Procedures Laceration Laceration 1: Site: scalp Size (cm): 1 Description: linear Depth: simple, single layer Pre-repair: wound explored and irrigated extensively Skin layer closed with: other (dermabond) Course Vital Signs: Vital signs: Vital Signs Temperature 98.2 F 04/03/23 17:05 Pulse Rate 75 04/03/23 17:05 Blood Pressure 111/67 04/03/23 17:05 Pulse Oximetry 98 04/03/23 17:05 Oxygen Delivery Me thod Room Air 04/03/23 17:05 MDM - Fall Medical Decision Making Patient presents here with small head laceration from a fall was able to repair with tissue adhesive his head CT is normal thoracic spine x-ray is normal as well he is stable for discharge back to [facility]. Lab Data Radiology Impressions Head CT 04/03/23 17:06 IMPRESSION: There are no acute concerning abnormalities. Thoracic Spine X-Ray 04/03/23 17:06 IMPRESSION: There is no evidence for acute fracture or malalignment. If there is desire for further evaluation, a CT scan could be performed. Discharge Plan Discharge Patient Disposition: Home Clinical Impression: Laceration of head, Fall Condition: Stable Prescriptions: No Action Rytary 23.75-95 mg capsule, extended release 4 cap PO TID@,, amantadine HCl 100 mg tablet 100 mg PO TID@,, ferrous sulfate [iron] 325 mg (65 mg iron) Tablet 325 mg PO BEDTIME mirtazapine 15 mg tablet 15 mg PO BEDTIME silodosin 4 mg capsule 4 mg PO DAILY@12 cyanocobalamin (vitamin B-12) [Vitamin B-12] 1,000 mcg Tablet 1,000 mcg PO BEDTIME levofloxacin 500 mg tablet 500 mg PO DAILY 7 Days Qty: 7 0RF gentamicin 0.3 % drops 2 drp ophthalmic (eye) Q6H 7 Days Qty: 5 0RF Discharge Orders: Discharge ED (Routine); Ordered 04/03/23 Ordered By: Aury Gaffney Referrals: Gianna Liu MD [Primary Care Provider] - 1-3 days Discharge Diet: Advance as tolerated Discharge Activity: Resume usual activity Patient Instructions: Fall Prevention (ED), Head Laceration (ED) Coding Level of Care Code ED Forensic Document Examiner for Didi Hendricks
[2023-04-03 18:05] VITALS: BP 110/59; PULSE 69; RESP 16; O2SAT 99
--- NOTE | 2023-04-03 18:49 | ECG_ITS ---
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 Measurements Intervals [place] Rate: 66 P: 82 [place]: 180 QRS: -40 QRSD: 93 T: 80 QT: 422 QTc: 443 Interpretive Statements SINUS RHYTHM LEFT AXIS DEVIATION [QRS AXIS < -30] Compared to ECG 04/03/2023 11:38:56 Sinus arrhythmia no longer present Incomplete right bundle-branch block no longer present Myocardial infarct finding no longer present Electronically Signed On 04-05-2023 10:03:36 CDT by Leigha Hammond M.D. [id number]
[2023-04-03 18:55] VITALS: BP 120/59; BP 135/69; BP 83/58; PULSE 77; PULSE 80; PULSE 82
[2023-04-03] MEDS: sodium chloride 0.9% 1,000 ML 999 ML IV ×2 (19:36→20:11)
[2023-04-03 19:55] LABS: Basophils % 0.3 %; Hematocrit 35.5 % (42.0-52.0); Hemoglobin 11.4 g/dL (11.7-16.6); Lymphocytes # 0.7 10^3/uL (0.8-4.8); Lymphocytes % 5.3 %; Mean Corpuscular HGB Conc 32.1 g/dL (30.0-36.0); Mean Corpuscular Volume 96.5 fl (80-94); Monocytes # 0.6 10^3/uL (0.2-0.9); Monocytes % 4.3 %; Neutrophils # 11.46 10^3/uL (1.8-7.7); Neutrophils % 89.6 %; Nucleated Red Blood Cells % 0 %; Platelet Count 324 10^3/cmm (130-400); Red Blood Count 3.68 10^6/uL (4.1-5.3); Red Cell Distribution Width 13.1 % (12.1-15.1); White Blood Count 12.8 10^3/uL (4.0-10.0)
--- NOTE | 2023-04-03 20:04 | XRR_ITS ---
PROCEDURE INFORMATION: Exam: XR Chest Exam date and time: 04/03/2023 8:10 PM Age: 82 years old Clinical indication: Other: Syncope TECHNIQUE: Imaging protocol: Radiologic exam of the chest. Views: 1 view. COMPARISON: CR XR chest 1V portable [id number] 04/03/2023 9:16 AM FINDINGS: Lungs: Unremarkable. No consolidation. Pleural spaces: Unremarkable. No pleural effusion. No pneumothorax. Heart/Mediastinum: Unremarkable. No cardiomegaly. Bones/joints: Unremarkable. XR/XR chest 1V portable [id number] IMPRESSION: No acute findings.
[2023-04-03 20:06] LABS: Troponin(5th) Baseline 35 ng/L (0-15)
[2023-04-03 20:09] LABS: Alanine Aminotransferase < 5 U/L (0-41); Albumin Level 3.6 g/dL (3.5-5.2); Alkaline Phosphatase 90 U/L (40-130); Anion Gap 14.5 (5-19); Aspartate Amino Transferase 14 U/L (0-40); Blood Urea Nitrogen 13 mg/dL (8-23); Calcium 8.6 mg/dL (8.5-10.5); Carbon Dioxide 26 mmol/L (22-29); Chloride 104 mmol/L (98-107); Globulin 2.5 g/dL (1.3-4.6); Glucose 119 mg/dL (65-115); Osmolality Calculated 291 mOsm/kg (285-295); Potassium 4.5 mmol/L (3.5-5.1); Sodium 140 mmol/L (136-145); Total Bilirubin 0.6 mg/dL (0.15-1.2); Total Protein 6.1 g/dL (6.6-8.7)
--- NOTE | 2023-04-03 20:49 | ECG_ITS ---
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 Measurements Intervals [place] Rate: 60 P: 0 [place]: 0 QRS: -3 QRSD: 94 T: 77 QT: 377 QTc: 377 Interpretive Statements ATRIAL FIBRILLATION SEPTAL MYOCARDIAL INFARCTION , PROBABLY OLD [40+ ms Q WAVE IN V1/V2] Compared to ECG 04/03/2023 18:59:12 Myocardial infarct finding now present Sinus rhythm no longer present Left-axis deviation no longer present Electronically Signed On 04-05-2023 12:29:41 CDT by Karolina Zazueta M.D. [id number]
--- NOTE | 2023-04-03 21:15 | PC.NURSE ---
REPORT GIVEN TO IVANA PARADA ASSUMED CARE.
[2023-04-03 21:29] LABS: Troponin 5 2HR 35.44 ng/L (0-15)
[2023-04-03 21:31] LABS: Troponin 5 2HR Delta 0.44 ABS# (0-10)
[2023-04-03 22:30] VITALS: BP 158/74; PULSE 65; RESP 16; O2SAT 98
--- NOTE | 2023-04-03 22:37 | PM.HP ---
Providers/Chief Complaint Admitting Physician: Bethel Adames DO Primary Care Provider: Gianna Liu MD Chief Complaint: fall N/V History of Present Illness Deng Hunt is a 82 year old male with Parkinson's disease who sees a physician at [facility] in [place], Dr. Richard. The patient and his moved to assisted living 9 months ago. Within that timeframe he has fallen 7 times. Yesterday and today he fell. He hit his head and has an abrasion at the back of his head. This was glued by ER physician. The patient was found to be orthostatic and given fluids and requested admission. Review of Systems Const: Denies: fever(s) or chills Eyes: Denies: change in vision ENMT: Denies: throat pain or nasal congestion Card: Reports: swelling of feet/ankles (uses jadiel hose, however feet still swollen); Denies: chest pain or palpitations Resp: Denies: dyspnea or productive cough GI: Denies: abdominal pain, nausea, vomiting or change in stool character : Denies: difficulty urinating or dysuria Musc: Denies: back pain or extremity pain Skin/Breast: Denies: rash or lesions Neuro: Denies: headache(s) or dizziness Psych: Reports: other (increased falling, won't use walker and says we are beyond the walker); Denies: anxiety or depression Henrik/Lymph: Denies: easy bruising or easy bleeding Medications/Allergies Home Medications Medication Instructions Recorded Confirmed Last Taken Type carbidopa ER 23.75 mg-levodopa 95 4 cap PO TID@,,10/04/21 04/03/23 04/03/23 History mg capsule,extended release (Rytary) amantadine HCl 100 mg tablet 100 mg PO TID@,03/28/23 04/03/23 04/03/23 History cyanocobalamin (vitamin B-12) 1,000 mcg PO BEDTIME 03/28/23 04/03/23 04/02/23 History 1,000 mcg tablet (Vitamin B-12) ferrous sulfate 325 mg (65 mg 325 mg PO BEDTIME 03/28/23 04/03/23 04/03/23 History iron) tablet (iron) gentamicin 0.3 % eye drops 2 drp ophthalmic (eye) Q6H 7 days 03/28/23 04/03/23 04/03/23 Rx #5 mL levofloxacin 500 mg tablet 500 mg PO DAILY 7 days #7 tabs 03/28/23 04/03/23 04/03/23 Rx mirtazapine 15 mg tablet 15 mg PO BEDTIME 03/28/23 04/03/23 04/02/23 History silodosin 4 mg capsule 4 mg PO DAILY@12 03/28/23 04/03/23 04/03/23 History Allergies Allergy/AdvReac Type Severity Reaction Status Date / Time No Known Allergies Allergy Verified 04/03/23 09:11 PFSH Acute PFSH: Medical History BPH (benign prostatic hyperplasia) BPH loc w urin obs/LUTS Dysphagia GERD (gastroesophageal reflux disease) Parkinson disease Sleep apnea Urinary retention Surgical History H/O colonoscopy 04/24/2019 History of appendectomy Family History Mother , at age 83 Natural Father , at age 71 Heart attack Social History Smoking and tobacco status: never smoked Alcohol intake: never Substance/Drug Use: never Marital status: Current occupational status: retired Vitals/I&O/Wt Last Vital Signs Temp 98.2 F 04/03/23 17:05 Pulse 80 04/03/23 18:55 Resp 16 04/03/23 18:05 BP 135/69 04/03/23 18:55 Pulse Ox 99 04/03/23 18:05 O2 Del Method Room Air 04/03/23 17:05 04/03/23 04/03/23 04/03/23 06:59 14:59 22:59 Intake Total 1999 Balance 1999 Weight last 48 hrs Weight 60.781 kg Physical Exam Narrative: Thin, elderly man with muscle wasting and resting tremor greater in right upper extremity Neuro. Alert and oriented to person place time and situation does have minimal confusion, corrects patient frequently. There is no focality to exam. Patient does have cogwheel rigidity greater on right upper extremity than left. Again resting tremor in the right upper extremity HEENT: NC-abrasion top/posterior scalp.. P ER RLA, EOMI. naso-Pharyngeal mucosa moist and pink. Neck no JVD carotid bruits or lymphadenopathy. Heart: Regular rate and rhythm normal S1-S2 without murmurs clicks gallops and rubs Lungs: Clear to auscultation without wheezes rales or rhonchi Abdomen flat soft nontender nondistended positive bowel sounds Extremities: JADIEL hose in place with lower extremities without edema however feet ankles 2-3+ pitting edema Skin: Multiple abrasions over arms with bruising : Normal male no lesions. 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 Tx: add florinef. We discussed palliative care service from [facility] or [facility]. can not travel. Also discussed hospice which his PCP recommended. I concur with this recommendation to avoid the stress on patient/ to return to ER and travel to phsycian's offices. I also explained that a team approach could help his live life to his fullest and allow him the most independence. 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 (3) Fall: As above (4) Laceration of head: Status post gluing by ER physician. Clean scalp and bandage if able. Otherwise bacitracin twice daily Plan Placed in observation overnight. We will start Florinef in a.m. Anticipate discharge tomorrow. Attestations Medical Necessity Statement*: Patient will be placed in observation overnight and discharged home tomorrow. Coding Level of Care Code Acute Code for g Fwd Diagnoses Orthostatic hypotension I95.1 Parkinson's disease (tremor, stiffness, slow motion, unstable posture) G20 Fall W19.XXXA Laceration of head S01.91XA
[2023-04-03] MEDS: heparin 5,000 unit/mL INJ 1 mL 5000 UNIT SUBCUT (23:33)
[2023-04-03 23:49] VITALS: BP 135/75; PULSE 65; RESP 16; TEMP 36.4; O2SAT 96
[2023-04-04 01:24] LABS: Troponin 5 6HR 37.63 ng/L (0-15)
[2023-04-04 01:25] LABS: Troponin 5 6HR Delta 2.63 ng/L (0-12)
[2023-04-04 03:58] VITALS: BP 142/66; PULSE 62; RESP 17; TEMP 36.6; O2SAT 95
--- NOTE | 2023-04-04 04:27 | ECG_ITS ---
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 Measurements Intervals Disney Rate: 66 P: 52 DE: 127 QRS: -26 QRSD: 93 T: 69 QT: 317 QTc: 333 Interpretive Statements SINUS RHYTHM INCOMPLETE RIGHT BUNDLE BRANCH BLOCK [90+ ms QRS DURATION, TERMINAL R IN V1/V2, 40+ ms S IN I/aVL/V4/V5/V6] SEPTAL MYOCARDIAL INFARCTION , PROBABLY OLD [40+ ms Q WAVE IN V1/V2] Compared to ECG 04/03/2023 20:58:40 Incomplete right bundle-branch block now present Atrial fibrillation no longer present Myocardial infarct finding still present Electronically Signed On 04-05-2023 12:29:26 CDT by Karolina Zazueta M.D. [id number]
--- NOTE | 2023-04-04 07:15 | PC.PHAR ---
Addendum entered by Mireya Aguirre 04/04/23 08:30: pts verified pts medications-pts states the pt finished his levofloxacin 500mg daily yesterday 04/03/23 rx was filled 03/28/23 7d/s-pts states pt is still using gentamicin 0.3% drops 2 drops opht q6h filled 03/31/23 6d/s- pts states still taking the rytary 23.75-95mg er mg-ext shows rytary 61.25-245mg er filled 03/31/23 90d/s Original Note: pt is from [facility] [phone] the pts gives the pt his medication states [facility] doesnt have a med list for the pt
[2023-04-04 07:44] VITALS: BP 147/60; PULSE 66; RESP 16; TEMP 36.7; O2SAT 98
[2023-04-04] MEDS: fludrocortisone 0.1 mg Tablet PO (08:51)
[2023-04-04] MEDS: ibuprofen 200 mg Tablet 400 MG PO (08:51)
[2023-04-04] MEDS: pyridostigmine 60 mg Tablet PO (08:51)
[2023-04-04] MEDS: sodium chloride 0.9% 1,000 ML 100 ML IV (10:08)
[2023-04-04 11:49] VITALS: BP 143/67; PULSE 69; RESP 18; TEMP 36.8; O2SAT 97
--- NOTE | 2023-04-04 13:39 | PM.DCS ---
Discharge Providers Date of Admission: 04/03/23 22:55 Date of Discharge: April 04, 2023 Attending Provider at Admission: Bethel Adames DO Attending Provider at Discharge: Rona Perez MD Primary Care Provider: Gianna Liu MD Diagnoses at Discharge Discharge Diagnosis (1) Orthostatic hypotension: Status: Acute (2) Parkinson's disease (tremor, stiffness, slow motion, unstable posture): Status: Acute (3) Fall: Status: Acute (4) Laceration of head: Status: Acute Reason for Visit Reason for Visit: fall N/V Hospital Course Hospital Course 82-year-old male who present to the hospital for orthostatic hypotension, patient history of Parkinson's, 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 I did recommend SNF instead of assisted living, wants to continue care at [facility], stating that she might accept palliative care in the future, palliative care were discussed by the admitting physician Dr. Bowen who is also our director of hospice. Of note, patient was complaining of burning sensation around his penile head, on examination it was erythematous, I discussed with Dr. Mott, patient seems to be having paraphimosis, I was able to retract the skin completely, I will give him fluconazole 14-day treatment, I do believe because of adult diapers patient is suffering from fungal rash/balanitis along paraphimosis. 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 Physical Exam Narrative: Patient is awake and alert GCS 15 at the bedside Abdomen soft Balanitis, paraphimosis retractable Nonfocal neuro exam Orthostatic positive Discharge Data Studies Completed and Pending Completed Studies During Hospitalization Category Date Time Status CT head wo con* [id number] Stat Cat Scan 04/03/23 17:06 Completed CXRP [XR chest 1V portable [id number]] Stat Exams 04/03/23 20:04 Completed XR thoracic spine 3V* [id number] Stat Exams 04/03/23 17:06 Completed Radiology Impressions Head CT 04/03/23 17:06 IMPRESSION: There are no acute concerning abnormalities. Thoracic Spine X-Ray 04/03/23 17:06 IMPRESSION: There is no evidence for acute fracture or malalignment. If there is desire for further evaluation, a CT scan could be performed. Chest X-Ray 04/03/23 20:04 IMPRESSION: No acute findings. Laboratory Results WBC 12.8 10^3/uL (4.0-10.0) H 04/03/23 19:12 RBC 3.68 10^6/uL (4.1-5.3) L 04/03/23 19:12 Hgb 11.4 g/dL (11.7-16.6) L 04/03/23 19:12 Hct 35.5 % (42.0-52.0) L 04/03/23 19:12 MCV 96.5 fl (80-94) H 04/03/23 19:12 MCH 31.0 pg (28.0-34.0) 04/03/23 19:12 MCHC 32.1 g/dL (30.0-36.0) 04/03/23 19:12 RDW 13.1 % (12.1-15.1) 04/03/23 19:12 Plt Count 324 10^3/cmm (130-400) 04/03/23 19:12 MPV 9.0 fL (7.4-10.4) 04/03/23 19:12 Neut % (Auto) 89.6 % 04/03/23 19:12 Lymph % (Auto) 5.3 % 04/03/23 19:12 [place] % (Auto) 4.3 % 04/03/23 19:12 Eos % (Auto) 0.0 % 04/03/23 19:12 Baso % (Auto) 0.3 % 04/03/23 19:12 Neut # (Auto) 11.46 10^3/uL (1.8-7.7) H 04/03/23 19:12 Lymph # (Auto) 0.7 10^3/uL (0.8-4.8) L 04/03/23 19:12 [place] # (Auto) 0.6 10^3/uL (0.2-0.9) 04/03/23 19:12 Eos # (Auto) 0.0 10^3/uL (0.0-0.8) 04/03/23 19:12 Baso # (Auto) 0.0 10^3/uL (0.0-0.1) 04/03/23 19:12 Nucleated RBC % (auto) 0 % 04/03/23 19:12 Nucleated RBCs # 0.0 /100WBC 04/03/23 19:12 Sodium 140 mmol/L (136-145) 04/03/23 19:12 Potassium 4.5 mmol/L (3.5-5.1) 04/03/23 19:12 Chloride 104 mmol/L (98-107) 04/03/23 19:12 Carbon Dioxide 26 mmol/L (22-29) 04/03/23 19:12 Anion Gap 14.5 (5-19) 04/03/23 19:12 BUN 13 mg/dL (8-23) 04/03/23 19:12 Creatinine 1.0 mg/dL (0.7-1.2) 04/03/23 19:12 GFR Calculation Not Reportable 04/03/23 19:12 Glucose 119 mg/dL (65-115) H 04/03/23 19:12 Calculated Osmolality 291 mOsm/kg (285-295) 04/03/23 19:12 Calcium 8.6 mg/dL (8.5-10.5) 04/03/23 19:12 Total Bilirubin 0.6 mg/dL (0.15-1.2) 04/03/23 19:12 AST 14 U/L (0-40) 04/03/23 19:12 ALT < 5 U/L (0-41) 04/03/23 19:12 Alkaline Phosphatase 90 U/L (40-130) 04/03/23 19:12 Troponin T Baseline 35 ng/L (0-15) H 04/03/23 19:12 Troponin T 120 Minute 35.44 ng/L (0-15) H 04/03/23 20:50 Delta Troponin T 0.44 ABS# (0-10) 04/03/23 20:50 Troponin T Hi Sens 6Hr 37.63 ng/L (0-15) H 04/04/23 00:56 Troponin T Hi Sens 6Hr Delta 2.63 ng/L (0-12) 04/04/23 00:56 Total Protein 6.1 g/dL (6.6-8.7) L 04/03/23 19:12 Albumin 3.6 g/dL (3.5-5.2) 04/03/23 19:12 Globulin 2.5 g/dL (1.3-4.6) 04/03/23 19:12 Vitals Last Vital Signs Temp 98.2 F 04/04/23 11:49 Pulse 69 04/04/23 11:49 Resp 18 04/04/23 11:49 BP 143/67 04/04/23 11:49 Pulse Ox 97 04/04/23 11:49 O2 Del Method Room Air 04/04/23 11:49 Discharge Plan Discharge Patient Disposition: Xfer SNF Condition: Stable Prescriptions: New fluconazole 100 mg tablet 100 mg PO DAILY 14 Days Qty: 14 0RF pyridostigmine bromide 30 mg tablet 30 mg PO BID Qty: 60 5RF fludrocortisone 0.1 mg tablet 0.1 mg PO BID Qty: 60 0RF Continued Rytary 23.75-95 mg capsule, extended release 4 cap PO TID@, amantadine HCl 100 mg tablet 100 mg PO TID@,, ferrous sulfate [iron] 325 mg (65 mg iron) Tablet 325 mg PO BEDTIME mirtazapine 15 mg tablet 15 mg PO BEDTIME silodosin 4 mg capsule 4 mg PO DAILY@12 cyanocobalamin (vitamin B-12) [Vitamin B-12] 1,000 mcg Tablet 1,000 mcg PO BEDTIME levofloxacin 500 mg tablet 500 mg PO DAILY 7 Days Qty: 7 0RF gentamicin 0.3 % drops 2 drp ophthalmic (eye) Q6H 7 Days Qty: 5 0RF selegiline HCl 5 mg capsule 5 mg PO QAM Discharge Orders: Discharge Order (Routine); Ordered 04/04/23 Ordered By: Rona Perez Referrals: Gianna Liu MD [Primary Care Provider] - 1-3 days Discharge Diet: Cardiac Discharge Activity: Wheelchair as instructed Patient Instructions: Fall Prevention (ED), Head Laceration (ED) Discharge Attestations Time Spent in Discharge Care*: greater than 30 min Quality Metrics Clinical Quality Measures [ No reported AMI, CVA or VTE this stay] Coding Level of Care Code Acute Code for Chg Fwd Diagnoses Orthostatic hypotension I95.1 Parkinson's disease (tremor, stiffness, slow motion, unstable posture) G20 Fall W19.XXXA Laceration of head S01.91XA
[2023-04-04 14:27] VITALS: BP 119/64; BP 121/50; PULSE 69; PULSE 93
== END 2023-04-04 15:08 | disposition skilled nursing facility (03) ==
LOC: ER 21:03 → MEDSURG 21:58
PROVIDERS: Admitting Provider Internal Medicine; Emergency Provider Emergency Medicine; PCP Family Medicine; Visit Provider Internal Medicine
DX: I95.1 Orthostatic hypotension (principal); G20 Parkinson's disease; W19.XXXA Unspecified fall, initial encounter; N47.2 Paraphimosis; Z91.81 History of falling; S01.01XA Laceration without foreign body of scalp, initial encounter
CPT/HCPCS: 12001; 36415; 70450; 71045; 72072; 80053; 81003; 83605; 83690; 84484; 85025; 93005; 96360; 96372; 99285; G0378; J1644; J7030

== ENCOUNTER 2023-04-17 13:49 | Outpatient (CLI) | payer MEDICARE, SELFPAY ==
[2023-04-17 14:22] LABS: Add Urine Microscopic? YES; Bilirubin Urine Neg (Negative); Blood Urine Neg (Negative); Glucose Urine UA Norm (Normal); Ketones Urine Negative (Negative); Leukocyte Esterase Urine Trace (Negative); Nitrate Urine Negative (Negative); Protein Urine Neg (Negative); Urine Appearance Clear (CLEAR); Urine Color Yellow (Yellow); Urobilinogen Urine Norm (Negative); pH Urine 5 (5-7)
[2023-04-17 14:28] LABS: RBC Urine 0-4 /hpf (0-2); Squamous Epithelial Cell Urine 0-4 /hpf (0-5); WBC Urine 0-4 /hpf (0-5)
[2023-04-17 14:29] LABS: Add Urine Culture? No; Bacteria Urine TRACE /hpf; Hyaline Casts Urine RARE /lpf; Mucus Urine 1+ /hpf; Renal Epithelial Cells Urine RARE /hpf
== END 2023-04-17 13:50 | disposition home or self-care (01) ==
PROVIDERS: PCP Family Medicine; Visit Provider Family Medicine
DX: Z01.89 Encounter for other specified special examinations (principal)
CPT/HCPCS: 81001; 87086

== ENCOUNTER 2023-05-03 15:28 | Outpatient (CLI) | payer MEDICARE, SELFPAY ==
[2023-05-03 15:35] LABS: Add Urine Microscopic? NO; Charge for UA Resulting for Rev
[2023-05-03 15:40] LABS: Bilirubin Urine Neg (Negative); Blood Urine Neg (Negative); Glucose Urine UA Norm (Normal); Ketones Urine Negative (Negative); Leukocyte Esterase Urine Negative (Negative); Nitrate Urine Negative (Negative); Protein Urine Neg (Negative); Urine Appearance Clear (CLEAR); Urine Color Yellow (Yellow); Urobilinogen Urine Norm (Negative); pH Urine 7 (5-7)
== END 2023-05-03 15:29 | disposition home or self-care (01) ==
PROVIDERS: PCP Family Medicine; Visit Provider Family Medicine
DX: N39.0 Urinary tract infection, site not specified (principal)
CPT/HCPCS: 81003; 87086

== ENCOUNTER 2023-05-06 15:11 | Emergency (ER) | payer MEDICARE, SELFPAY ==
[2023-05-06] VITALS (13 sets, daily range): BP systolic 134–163; BP diastolic 64–74; PULSE 59–74; RESP 9–25; TEMP 36.8; O2SAT 94–99; BMI 18.8
--- NOTE | 2023-05-06 16:20 | W.ED.MALEGU ---
HPI - Male Genitourinary General: Chief complaint: Urogenital-Male Stated complaint: uti symptoms Time Seen by Provider: 05/06/23 15:27 History of Present Illness: Patient brought to the ER by EMS from [facility] with complaints of right flank pain right lower quadrant/pubic pain and burning frequency and hematuria over the last several days. Patient has a history of UTI and is also complaining of incontinence. Patient denies any fever chills nausea vomiting diarrhea at this time. Patient does states he gets up in the middle the night about every hour to go pee and then just dribbles when he goes. Review of Systems General: Reports: 10 or more systems reviewed and unremarkable except in HPI and below PFSH ED PFSH: Medical History BPH (benign prostatic hyperplasia) BPH loc w urin obs/LUTS Dysphagia Fall GERD (gastroesophageal reflux disease) Laceration of head Near syncope Orthostatic hypotension Orthostatic hypotension Parkinson disease Parkinson's disease (tremor, stiffness, slow motion, unstable posture) Sleep apnea Urinary retention Surgical History H/O colonoscopy 04/24/2019 History of appendectomy Family History Mother , at age 83 Natural Father , at age 71 Heart attack Social History Smoking and tobacco status: never smoked Alcohol intake: never Substance/Drug Use: never Marital status: Current occupational status: retired Physical Exam Const: COMMON NORMALS: no acute distress, average body habitus, patient oriented x3, no limitations, healthy appearing, alert and well nourished HENMT: COMMON NORMALS: normocephalic, atraumatic, hearing grossly normal bilaterally, external ears normal, Normal external nose present and moist oral mucous membranes HEAD & SCALP: normocephalic and atraumatic NOSE: Normal external nose present EXTERNAL EAR: Yes external ears normal Neck/C-Spine: COMMON NORMALS: full ROM, no lymphadenopathy, supple, no meningeal signs, no JVD and Thyroid normal THYROID: Thyroid normal Chest: COMMONS NORMALS: normal inspection of the chest and normal palpation of entire chest wall Resp: COMMON NORMALS: normal respiratory effort, No retractions, No use of accessory muscles and clear to auscultation bilaterally AUSCULTATION: clear to auscultation bilaterally Cardio: COMMON NORMALS: no JVD, regular rate, regular rhythm, S1 normal heart sound present, S2 normal heart sound present, No gallops present (Cardio), No clicks present (Cardio), No murmurs present (Cardio) and No rub (Cardio) RATE: regular rate RHYTHM: regular rhythm HEART SOUNDS: S1 normal heart sound present and S2 normal heart sound present GI: COMMON NORMALS: Normal to inspection, nondistended, normoactive bowel sounds present, Soft to palpation, non-tender, No hepatosplenomegaly present and no masses PALPATION: Yes Soft to palpation and Yes No hepatosplenomegaly present Neuro: COMMON NORMALS: patient oriented x3 SENSORIUM/ORIENTATION: Yes alert MENINGEAL SIGNS: Yes no meningeal signs Course Vital Signs: Vital signs: Vital Signs Temperature 98.3 F 05/06/23 15:50 Pulse Rate 74 05/06/23 17:05 Respiratory Rate 16 05/06/23 17:00 Blood Pressure 163/74 05/06/23 17:05 Pulse Oximetry 99 05/06/23 17:05 Oxygen Delivery Me thod Room Air 05/06/23 16:20 MDM - Male Medical Decision Making Patient presents to the ER with complaints of urinary frequency especially at night and pain and burning when he urinates. Patient has a history of UTIs. UA was checked which was negative. Upon further investigation he patient has BPH and part of this may be he is on 4 mg a Scilla dose and so the maximum 8 mg Scilla dosing. This was discussed with the family and we will up this to 8 mg and have him follow-up with his PCP in approximately 7 to 10 days. Differential Diagnosis Likely urinary tract infection; Unlikely priapism, urethritis, epididymitis, genital herpes simplex, prostatitis, acute retention of urine or inguinal hernia Medical Records I reviewed the patient's medical records. Lab Data I reviewed the patient's lab results. Laboratory Results Urine Color Yellow (Yellow) 05/06/23 16:25 Urine Appearance Clear (CLEAR) 05/06/23 16:25 Urine pH 6.5 (5-7) 05/06/23 16:25 Ur Specific [place] 1.015 (1.005-1.030) 05/06/23 16:25 Urine Protein Neg (Negative) 05/06/23 16:25 Urine Glucose (UA) Norm (Normal) 05/06/23 16:25 Urine Ketones Negative (Negative) 05/06/23 16:25 Urine Blood Neg (Negative) 05/06/23 16:25 Urine Nitrate Negative (Negative) 05/06/23 16:25 Urine Bilirubin Neg (Negative) 05/06/23 16:25 Urine Urobilinogen Norm mg/dL (Negative) 05/06/23 16:25 Ur Leukocyte Esterase Negative (Negative) 05/06/23 16:25 Discharge Plan Discharge Patient Disposition: Home Clinical Impression: Dysuria Benign prostatic hyperplasia Qualifiers: Lower urinary tract symptom presence: symptoms present Lower urinary tract symptom detail: nocturia Qualified Code(s): N40.1 - Benign prostatic hyperplasia with lower urinary tract symptoms Condition: Stable Prescriptions: New silodosin 8 mg capsule 8 mg PO DAILY Qty: 30 0RF Rx Instructions: must administer with a meal/food No Action Rytary 23.75-95 mg capsule, extended release 4 cap PO TID@08,12,19 amantadine HCl 100 mg tablet 100 mg PO TID@08,12,19 ferrous sulfate [iron] 325 mg (65 mg iron) Tablet 325 mg PO BEDTIME mirtazapine 15 mg tablet 15 mg PO BEDTIME silodosin 4 mg capsule 4 mg PO DAILY@12 cyanocobalamin (vitamin B-12) [Vitamin B-12] 1,000 mcg Tablet 1,000 mcg PO BEDTIME selegiline HCl 5 mg capsule 5 mg PO QAM pyridostigmine bromide 30 mg tablet 30 mg PO BID Qty: 60 5RF fludrocortisone 0.1 mg tablet 0.1 mg PO BID Qty: 60 0RF memantine 10 mg Tablet 10 mg PO BID memantine 5 mg Tablet 5 mg PO BID Discharge Orders: Discharge ED (Routine); Ordered 05/06/23 Ordered By: Carlyle Covarrubias Referrals: Gianna Liu MD [Primary Care Provider] - 1 week Patient Instructions: Dysuria - Male, Benign Prostatic Hypertrophy (BPH) Activity Restrictions/Additional Instructions: Please take your prescription as directed this includes a new dose of the Silodosin as this may help with your BPH. Please follow-up with your family practice doctor in approximately 7 to 10 days or sooner as needed. Coding Level of Care Code ED Welcome Hostess for Didi Hendricks
[2023-05-06 16:40] LABS: Add Urine Microscopic? NO; Charge for UA Resulting for Rev
[2023-05-06 16:57] LABS: Bilirubin Urine Neg (Negative); Blood Urine Neg (Negative); Glucose Urine UA Norm (Normal); Ketones Urine Negative (Negative); Leukocyte Esterase Urine Negative (Negative); Nitrate Urine Negative (Negative); Protein Urine Neg (Negative); Specific Gravity, Urine 1.015 (1.005-1.030); Urine Appearance Clear (CLEAR); Urine Color Yellow (Yellow); Urobilinogen Urine Norm (Negative); pH Urine 6.5 (5-7)
== END 2023-05-06 17:30 | disposition home or self-care (01) ==
PROVIDERS: Emergency Provider Emergency Medicine; PCP Family Medicine
DX: N40.1 Benign prostatic hyperplasia with lower urinary tract symptoms (principal); R30.0 Dysuria; G20 Parkinson's disease
CPT/HCPCS: 81003; 99283

== ENCOUNTER 2023-07-09 06:00 | Outpatient (RCR) | payer MEDICARE, SELFPAY | END 2023-08-07 23:59 | disposition home or self-care (01) | LOC: SOT 06:00 | PROVIDERS: PCP Family Medicine; Visit Provider Nurse Practitioner Family | DX: G20.A1 Parkinson's disease without dyskinesia, without mention of fluctuations (principal); R29.6 Repeated falls; Z91.81 History of falling | CPT/HCPCS: 97167 ==

== ENCOUNTER → 2023-07-17 10:40 | Outpatient (BNVA) | payer MEDICARE, SELFPAY | PROVIDERS: PCP Family Medicine; Referring Provider Family Medicine; Visit Provider Psychiatry & Neurology Neurology | DX: G20.A1 Parkinson's disease without dyskinesia, without mention of fluctuations (principal) | CPT/HCPCS: 99203 ==

== ENCOUNTER 2023-08-12 15:48 | Outpatient (CLI) | payer MEDICARE, SELFPAY ==
[2023-08-12 16:14] LABS: Blood Urine Neg (Negative); Glucose Urine UA Norm (Normal); Ketones Urine 1+ (Negative); Protein Urine Trace (Negative); Specific Gravity, Urine 1.025 (1.005-1.030); Urine Appearance Clear (CLEAR); Urine Color Dark Yellow (Yellow); pH Urine 5 (5-7)
[2023-08-12 16:15] LABS: Add Urine Microscopic? YES; Bilirubin Urine Neg (Negative); Leukocyte Esterase Urine 1+ (Negative); Nitrate Urine Negative (Negative); Urobilinogen Urine 1 mg/dL (Negative)
[2023-08-12 16:16] LABS: Add Urine Culture? Yes; Bacteria Urine 1+ /hpf; Mucus Urine 2+ /hpf; WBC Urine 15-25 /hpf (0-5)
== END 2023-08-12 15:49 | disposition home or self-care (01) ==
LOC: LAB 15:52
PROVIDERS: PCP Family Medicine; Visit Provider Family Medicine
DX: N39.0 Urinary tract infection, site not specified (principal)
CPT/HCPCS: 81001; 87086

== ENCOUNTER 2023-08-27 09:59 | Emergency (ER) | payer MEDICARE, SELFPAY ==
--- NOTE | 2023-08-27 10:03 | W.ED.GENADLT ---
HPI - General Adult General: Chief complaint: Altered Mental Status Stated complaint: Fall/ AMS Time Seen by Provider: 08/27/23 10:01 Source: patient Mode of arrival: EMS History of Present Illness: 82-year-old male presents emergency [facility]. He has history of Parkinson's. They report that he slipped and fell had convulsive like episodes this morning at the prison he slipped off his bed he stating he hit his head and his neck hurts. He is currently being treated for UTI. He has not been any vomiting since this episode. No reports of chest pain or shortness of breath. Into his sheet from the prison he is on hospice. They felt that he was altered this morning and not talking quite normally. Onset (ago): minute(s) Location: head and neck Severity: mild Relieving factors: none Exacerbating factors: none Associated symptoms: Reports confusion and headache(s); Deny chest pain, cough, diaphoresis, decreased appetite, dyspnea, fevers/chills, nausea, palpitations, seizures, short of breath, syncope, vomiting or weakness Review of Systems Const: Denies: fever(s), chills or diaphoresis Card: Denies: chest pain, palpitations or syncope Resp: Denies: dyspnea GI: Denies: abdominal pain, nausea or vomiting : Denies: dysuria, urinary frequency or urinary urgency Musc: Reports: neck pain; Denies: back pain Neuro: Reports: headache(s) and confusion PFS ED PFSH: Medical History BPH (benign prostatic hyperplasia) BPH loc w urin obs/LUTS Dysphagia Fall GERD (gastroesophageal reflux disease) Laceration of head Near syncope Orthostatic hypotension Orthostatic hypotension Parkinson disease Parkinson's disease (tremor, stiffness, slow motion, unstable posture) Sleep apnea Urinary retention Surgical History H/O colonoscopy 04/24/2019 History of appendectomy Family History Mother , at age 83 Natural Father , at age 71 Heart attack Social History Smoking and tobacco/nicotine status: never used tobacco/nicotine Alcohol intake: never Substance/Drug Use: never Marital status: Current occupational status: retired Physical Exam Const: COMMON NORMALS: no acute distress GENERAL APPEARANCE: cooperative and comfortable ORIENTATION/CONSCIOUSNESS: Yes awake, Yes oriented to person, Yes oriented to place and Yes oriented to time HENMT: COMMON NORMALS: normocephalic, atraumatic and hearing grossly normal bilaterally HEAD & SCALP: normocephalic and atraumatic Resp: COMMON NORMALS: normal respiratory effort, No retractions, No use of accessory muscles and clear to auscultation bilaterally AUSCULTATION: clear to auscultation bilaterally Cardio: COMMON NORMALS: regular rate, regular rhythm and No murmurs present (Cardio) RATE: regular rate RHYTHM: regular rhythm GI: COMMON NORMALS: Soft to palpation and No hepatosplenomegaly present AUSCULTATION: Yes normoactive bowel sounds PALPATION: Yes Soft to palpation, No Tenderness to palpation present (GI), No Guarding due to palpation present (GI) and Yes No hepatosplenomegaly present Extremity: COMMON NORMALS: normal to inspection, capillary refill normal, no clubbing, cyanosis or edema, no calf tenderness and no pedal edema Neuro: SENSORIUM/ORIENTATION: Yes oriented to person, Yes oriented to place and Yes oriented to time Skin: COMMON NORMALS: no rashes or lesions noted GENERAL SKIN EXAM: no rashes or lesions noted Course Vital Signs: Vital signs: Vital Signs Temperature 98.2 F 08/27/23 10:08 Pulse Rate 64 08/27/23 14:11 Respiratory Rate 16 08/27/23 14:11 Blood Pressure 164/70 08/27/23 14:11 Pulse Oximetry 98 08/27/23 14:11 Oxygen Delivery Me thod Room Air 08/27/23 10:56 MDM - General Adult Medical Decision Making Vital signs are stable no acute findings. He does have some cystitis which we will treat with ciprofloxacin. Urine is being cultured. The remainder of his exam is unremarkable he is otherwise stable family reports he has been having more difficulty lately think his Parkinson's has become progressive and is beginning to affect more of his cognitive function. We will discharge patient home encouraged him to follow-up with his primary care may need to evaluate for different levels of care assisted living versus prison level. Medical Records I reviewed the patient's medical records. Lab Data I reviewed the patient's lab results. 08/27/23 10:13 08/27/23 10:13 Laboratory Results WBC 12.55 10^3/uL (3.29-11.43) H 08/27/23 10:13 RBC 3.48 10^6/uL (3.85-5.65) L 08/27/23 10:13 Hgb 10.60 g/dL (11.27-16.99) L 08/27/23 10:13 Hct 33.6 % (37-53) L 08/27/23 10:13 MCV 96.6 fl (82-101) 08/27/23 10:13 MCH 30.5 pg (27-33) 08/27/23 10:13 MCHC 31.5 g/dL (30-55) 08/27/23 10:13 RDW 12.9 % (12.1-15.1) 08/27/23 10:13 Plt Count 364 10^3/cmm (157-399) 08/27/23 10:13 MPV 8.5 fL (7.4-10.4) 08/27/23 10:13 Neut % (Auto) 86.3 % 08/27/23 10:13 Lymph % (Auto) 6.5 % 08/27/23 10:13 [place] % (Auto) 5.5 % 08/27/23 10:13 Eos % (Auto) 1.0 % 08/27/23 10:13 Baso % (Auto) 0.2 % 08/27/23 10:13 Neut # (Auto) 10.83 10^3/uL (1.8-7.7) H 08/27/23 10:13 Lymph # (Auto) 0.8 10^3/uL (0.8-4.8) 08/27/23 10:13 [place] # (Auto) 0.7 10^3/uL (0.2-0.9) 08/27/23 10:13 Eos # (Auto) 0.1 10^3/uL (0.0-0.8) 08/27/23 10:13 Baso # (Auto) 0.0 10^3/uL (0.0-0.1) 08/27/23 10:13 Nucleated RBC % (auto) 0 % 08/27/23 10:13 Nucleated RBCs # 0.0 /100WBC 08/27/23 10:13 Sodium 140 mmol/L (136-145) 08/27/23 10:13 Potassium 4.7 mmol/L (3.5-5.1) 08/27/23 10:13 Chloride 104 mmol/L (98-107) 08/27/23 10:13 Carbon Dioxide 27 mmol/L (22-29) 08/27/23 10:13 Anion Gap 13.7 (5-19) 08/27/23 10:13 BUN 15 mg/dL (8-23) 08/27/23 10:13 Creatinine 1.1 mg/dL (0.7-1.2) 08/27/23 10:13 GFR Calculation Not Reportable 08/27/23 10:13 Glucose 165 mg/dL (65-115) H 08/27/23 10:13 Calculated Osmolality 295 mOsm/kg (285-295) 08/27/23 10:13 Lactic Acid 1.2 mmol/L (0.5-2.2) 08/27/23 10:13 Calcium 8.9 mg/dL (8.5-10.5) 08/27/23 10:13 Magnesium 2.2 mg/dL (1.7-2.3) 08/27/23 10:13 Total Bilirubin 0.4 mg/dL (0.15-1.2) 08/27/23 10:13 AST 8 U/L (0-40) 08/27/23 10:13 ALT < 5 U/L (0-41) 08/27/23 10:13 Alkaline Phosphatase 113 U/L (40-130) 08/27/23 10:13 Ammonia 18 umol/L (16-60) 08/27/23 11:58 Creatine Kinase 28 U/L (39-308) L 08/27/23 10:13 Total Protein 6.9 g/dL (6.6-8.7) 08/27/23 10:13 Albumin 3.5 g/dL (3.5-5.2) 08/27/23 10:13 Globulin 3.4 g/dL (1.3-4.6) 08/27/23 10:13 Urine Color Yellow (Yellow) 08/27/23 11:04 Urine Appearance Sl hazy (CLEAR) A 08/27/23 11:04 Urine pH 5 (5-7) 08/27/23 11:04 Ur Specific [place] 1.025 (1.005-1.030) 08/27/23 11:04 Urine Protein Neg (Negative) 08/27/23 11:04 Urine Glucose (UA) Norm (Normal) 08/27/23 11:04 Urine Ketones 1+ (Negative) H 08/27/23 11:04 Urine Blood Trace (Negative) H 08/27/23 11:04 Urine Nitrate Negative (Negative) 08/27/23 11:04 Urine Bilirubin Neg (Negative) 08/27/23 11:04 Urine Urobilinogen Norm mg/dL (Negative) 08/27/23 11:04 Ur Leukocyte Esterase 1+ (Negative) H 08/27/23 11:04 Urine RBC 0-4 /hpf (0-2) H 08/27/23 11:04 Urine WBC 5-10 /hpf (0-5) H 08/27/23 11:04 Ur Squamous Epith Cells None /hpf (0-5) 08/27/23 11:04 Ur Transition Epith Cell 0-4 /hpf 08/27/23 11:04 Ur Renal Epithelial Cell R /hpf 08/27/23 11:04 Amorphous Sediment Trace /hpf 08/27/23 11:04 Urine Bacteria Trace /hpf (NONE) 08/27/23 11:04 Hyaline Casts 40-55 /lpf H 08/27/23 11:04 Urine Mucus 2+ /hpf 08/27/23 11:04 All radiology interpretation(s) finalized by discharge Discharge Plan Discharge Patient Disposition: Home Clinical Impression: Cystitis, Dementia in Parkinson's disease, Parkinson disease Condition: Stable Prescriptions: No Action Rytary 61.25-245 mg capsule, extended release 1 cap PO QID Qty: 240 2RF Rx Instructions: divide evenly over waking hours Rytary 23.75-95 mg capsule, extended release 1 cap PO .five time daily Qty: 450 2RF Rx Instructions: divide evenly over waking hours amantadine HCl 100 mg tablet 100 mg PO TID@08,12,19 mirtazapine 15 mg tablet 15 mg PO BEDTIME cyanocobalamin (vitamin B-12) [Vitamin B-12] 1,000 mcg Tablet 1,000 mcg PO BEDTIME ciprofloxacin HCl 250 mg tablet 250 mg PO Q12H selegiline HCl 5 mg capsule 5 mg PO QAM fludrocortisone 0.1 mg tablet 0.1 mg PO BID Qty: 60 0RF memantine 10 mg Tablet 10 mg PO BID silodosin 8 mg capsule 8 mg PO DAILY Qty: 30 0RF Rx Instructions: must administer with a meal/food Discharge Orders: Discharge ED (Routine); Ordered 08/27/23 Ordered By: Hipolito Whaley Referrals: Gianna Liu MD [Primary Care Provider] - Patient Instructions: Dementia (ED), Opioid Safety, Pain Management Activity Restrictions/Additional Instructions: Thank you for choosing [facility] for your healthcare needs today. Please realize this is an emergency room and that we are providing you with a medical screening exam and this may not be complete and all inclusive of all the testing and or work up that you may need to determine your ailment or severity of your illness. It is very important that you follow up as instructed or that you return to the Emergency Department should you have concerns or if your condition changes or worsens in any way. You were seen today for altered mental status. This is likely due to progressive dementia with your Parkinson's exacerbated by the underlying bladder infection. Continue the ciprofloxacin. Consult with your primary care doctor and with your neurologist regarding appropriate levels of care. Coding Level of Care Code ED Supervisor Graphite for Didi Hendricks
[2023-08-27 10:08] VITALS: BP 149/76; PULSE 64; RESP 14; TEMP 36.8; O2SAT 98; BMI 20.9
--- NOTE | 2023-08-27 10:11 | CT_ITS ---
WS: [id number] CT HEAD NONCONTRAST HISTORY: trauma TECHNIQUE: Contiguous axial imaging performed through the brain in 2.5 mm imaging. Bone and soft tiss ue windows. Sagittal and coronal reformats reviewed. All CT scans at [facility] use at least one of these dose optimization techniques: automated exposure control; mA and/or kV adjustment per pa tient size (includes targeted exams where dose is matched to clinical indication); or iterative recon struction. DLP: 1204.20 mGy.cm COMPARISON: 04/03/2023 No acute intracranial hemorrhage, midline shift or mass effect. Moderate cerebral and cerebellar atrophy with small vessel ischemic disease. Stable since the prior s tudy. Ventricles: Normal size with no hydrocephalus. No inferior displacement of the cerebellar tonsils. Paranasal sinuses: As visualized are clear. Mastoid air cells: Well pneumatized. Calvarium and scalp: Skull is intact with no soft tissue edema or swelling. Dense arterial calcification in the distal vertebral and the intracranial carotid arteries. IMPRESSION: 1. No acute intracranial hemorrhage or edema. 2. Moderate cerebral and cerebellar atrophy and small vessel ischemic disease. Stable since 04/03/2023 .
[2023-08-27 10:30] LABS: Basophils % 0.2 %; Eosinophils # 0.1 10^3/uL (0.0-0.8); Hematocrit 33.6 % (37-53); Lymphocytes # 0.8 10^3/uL (0.8-4.8); Lymphocytes % 6.5 %; Mean Corpuscular HGB Conc 31.5 g/dL (30-55); Mean Corpuscular Hemoglobin 30.5 pg (27-33); Mean Corpuscular Volume 96.6 fl (82-101); Mean Platelet Volume 8.5 fL (7.4-10.4); Monocytes # 0.7 10^3/uL (0.2-0.9); Monocytes % 5.5 %; Neutrophils # 10.83 10^3/uL (1.8-7.7); Neutrophils % 86.3 %; Nucleated Red Blood Cells % 0 %; Platelet Count 364 10^3/cmm (157-399); Red Blood Count 3.48 10^6/uL (3.85-5.65); Red Cell Distribution Width 12.9 % (12.1-15.1); White Blood Count 12.55 10^3/uL (3.29-11.43)
[2023-08-27 10:56] VITALS: BP 161/71; PULSE 63; RESP 16; O2SAT 98
[2023-08-27 10:58] LABS: Alanine Aminotransferase < 5 U/L (0-41); Albumin Level 3.5 g/dL (3.5-5.2); Alkaline Phosphatase 113 U/L (40-130); Anion Gap 13.7 (5-19); Aspartate Amino Transferase 8 U/L (0-40); Blood Urea Nitrogen 15 mg/dL (8-23); Calcium 8.9 mg/dL (8.5-10.5); Carbon Dioxide 27 mmol/L (22-29); Chloride 104 mmol/L (98-107); Creatine Phosphokinase 28 U/L (39-308); Globulin 3.4 g/dL (1.3-4.6); Glucose 165 mg/dL (65-115); Magnesium 2.2 mg/dL (1.7-2.3); Osmolality Calculated 295 mOsm/kg (285-295); Potassium 4.7 mmol/L (3.5-5.1); Sodium 140 mmol/L (136-145); Total Bilirubin 0.4 mg/dL (0.15-1.2); Total Protein 6.9 g/dL (6.6-8.7)
[2023-08-27 11:01] LABS: Lactic Sepsis W/Reflex 1.2 mmol/L (0.5-2.2)
[2023-08-27 11:42] LABS: Add Urine Microscopic? YES; Bilirubin Urine Neg (Negative); Blood Urine Trace (Negative); Glucose Urine UA Norm (Normal); Ketones Urine 1+ (Negative); Leukocyte Esterase Urine 1+ (Negative); Nitrate Urine Negative (Negative); Protein Urine Neg (Negative); Specific Gravity, Urine 1.025 (1.005-1.030); Urine Appearance SL Hazy (CLEAR); Urine Color Yellow (Yellow); Urobilinogen Urine Norm (Negative); pH Urine 5 (5-7)
[2023-08-27 11:47] LABS: Amorphous Sediment Urine TRACE /hpf; Bacteria Urine TRACE /hpf; Hyaline Casts Urine 40-55 /lpf; Mucus Urine 2+ /hpf; RBC Urine 0-4 /hpf (0-2); Renal Epithelial Cells Urine R /hpf; Transitional Epi Cells Urine 0-4 /hpf
[2023-08-27 11:48] LABS: Add Urine Culture? No
[2023-08-27 12:07] VITALS: BP 153/73; PULSE 73; RESP 18; O2SAT 97
[2023-08-27 12:25] LABS: Ammonia 18 umol/L (16-60)
[2023-08-27 14:00] VITALS: BP 164/70; PULSE 64; RESP 16; O2SAT 98
[2023-08-27 14:11] VITALS: BP 164/70; PULSE 64; RESP 16; O2SAT 98
== END 2023-08-27 14:30 | disposition home or self-care (01) ==
PROVIDERS: Emergency Provider Family Medicine; PCP Family Medicine
DX: G20.A1 Parkinson's disease without dyskinesia, without mention of fluctuations (principal); F02.80 Dementia in other diseases classified elsewhere, unspecified severity, without behavioral disturbance, psychotic disturbance, mood disturbance, and anxiety; N30.90 Cystitis, unspecified without hematuria
CPT/HCPCS: 36415; 70450; 80053; 81001; 82140; 82550; 83605; 83735; 85025; 99284

== ENCOUNTER 2023-10-24 13:38 | Outpatient (CLI) | payer MEDICARE, SELFPAY ==
[2023-10-24 14:29] LABS: Add Urine Microscopic? YES; Bilirubin Urine Neg (Negative); Blood Urine Neg (Negative); Glucose Urine UA Norm (Normal); Ketones Urine 1+ (Negative); Leukocyte Esterase Urine Trace (Negative); Nitrate Urine Negative (Negative); Protein Urine Neg (Negative); Specific Gravity, Urine 1.015 (1.005-1.030); Urine Appearance Clear (CLEAR); Urine Color Yellow (Yellow); Urobilinogen Urine Norm (Negative); pH Urine 5 (5-7)
[2023-10-24 14:34] LABS: Anion Gap 14.3 (5-19); Blood Urea Nitrogen 18 mg/dL (8-23); Calcium 9.2 mg/dL (8.5-10.5); Carbon Dioxide 31 mmol/L (22-29); Chloride 95 mmol/L (98-107); Glucose 162 mg/dL (65-115); NT Pro B Type Natriuretic Pept 1482 pg/mL (0-450); Osmolality Calculated 289 mOsm/kg (285-295); Potassium 3.3 mmol/L (3.5-5.1); Sodium 137 mmol/L (136-145)
[2023-10-24 14:36] LABS: Add Urine Culture? No; Bacteria Urine TRACE /hpf; Hyaline Casts Urine 15-25 /lpf; Mucus Urine 1+ /hpf; RBC Urine 0-4 /hpf (0-2); Squamous Epithelial Cell Urine 0-4 /hpf (0-5)
== END 2023-10-24 13:39 | disposition home or self-care (01) ==
PROVIDERS: PCP Family Medicine; Visit Provider Nurse Practitioner Family
DX: I10 Essential (primary) hypertension
CPT/HCPCS: 80048; 81001; 83880; 87086

== ENCOUNTER 2023-10-24 14:27 | Outpatient (CLI) | payer MEDICARE, SELFPAY ==
--- NOTE | 2023-10-24 14:32 | CT_ITS ---
WS: [id number] CT CHEST TECHNIQUE: Noncontrast CT of the chest with coronal and sagittal reformatted images. CLINICAL INFORMATION: SOLITARY PULMONARY NODULE COMPARISON: CT chest 03/20/2023 DLP: 286.[address] scans at [facility] use at least one of these dose optimization techniques: automated e xposure control; mA and/or kV adjustment per patient size (includes targeted exams where dose is matc hed to clinical indication); or iterative reconstruction. FINDINGS: Chronic emphysematous changes with hyperinflation. Again seen is the 9 mm nodule in the abdoul gula anteriorly stable compared to 03/20/2023 and 05/17/2021. No mediastinal or hilar lymphadenopathy. Normal caliber thoracic aorta. Aortic calcification. Calcified RIGHT hilar nodes. Coronary artery daniel cifications. Subsegmental atelectasis LEFT lower lobe. Markedly enlarged thyroid goiter is similar in appearance. Associated substernal extension with RIGHT to LEFT mass effect on the trachea unchanged. Cholelithiasis. No axillary lymphadenopathy. Normal GE junction. Spinal granulomas. Splenic artery calcification. Adrenal glands are normal. Hypertrophic c hanges thoracic spine with ankylosis. Sclerotic lesion partially visualized in the RIGHT humerus inco mpletely evaluated but likely enchondroma. This appears stable since 2012 chest radiograph IMPRESSION: 1. Stable 9 mm nodule in the lingula anterior and inferior near the diaphragm. This appears stable s felix 05/17/2021 2. No mediastinal or hilar lymphadenopathy. 3. Stable thyroid goiter with substernal extension. RIGHT to LEFT mass effect on the trachea. No cri tical airway narrowing. 4. Subsegmental atelectasis in the LEFT lower lobe.
== END 2023-10-24 14:28 | disposition home or self-care (01) ==
LOC: RAD 14:28
PROVIDERS: PCP Family Medicine; Visit Provider Family Medicine
DX: R91.1 Solitary pulmonary nodule (principal)
CPT/HCPCS: 71250

== ENCOUNTER 2023-11-08 15:13 | Observation (INO) | payer MEDICARE, SELFPAY ==
[2023-11-08 15:23] VITALS: BMI 27.8
[2023-11-08 15:25] VITALS: BP 147/74; PULSE 74; RESP 17; TEMP 37.1; O2SAT 94
--- NOTE | 2023-11-08 15:48 | ED_ITS ---
HPI - Male Genitourinary 2 General: Chief complaint: Urogenital-Male Stated complaint: uti Time Seen by Provider: 11/08/23 15:25 Source: patient Mode of arrival: ambulatory History of Present Illness: 82-year-old male with a history of Marifer francisco's lives at a local snf. He recently diagnosed the UTI staff there did not feel he was getting better and sent him to the emergency room he is currently on Bactrim. Reviewing the chart his last several urine cultures have showed mixed perico. In checking with [facility] last culture there were over was done here the one in the chart is from 116 that also shows mixed perico. They also mention that in the past he has been bradycardic and admitted offered a pacemaker they have not done it yet. His was going to accompany him here to the visit today but evidently stumbled in the waiting room and is being seen as a patient. [facility] staff reports patient has had progressively worsening Parkinson symptoms Severity: mild Relieving factors: none Exacerbating factors: none Associated symptoms: Reports dysuria; Deny discharge, fevers/chills, hematuria, nausea, rash, swelling, urinary incontinence, urinary retention, mass or vomiting Review of Systems 2 Const: Denies: fever(s) or chills Card: Denies: chest pain Resp: Denies: dyspnea GI: Denies: abdominal pain, nausea or vomiting : Reports: dysuria and difficulty starting urination; Denies: urinary frequency, urinary urgency, urinary incontinence or hematuria Musc: Denies: neck pain or back pain Skin/Breast: Denies: rash PFSH ED 2 PFSH: Medical History Near syncope Orthostatic hypotension Fall Laceration of head Orthostatic hypotension Dysphagia BPH loc w urin obs/LUTS Parkinson's disease (tremor, stiffness, slow motion, unstable posture) Sleep apnea GERD (gastroesophageal reflux disease) BPH (benign prostatic hyperplasia) Urinary retention Parkinson disease Surgical History History of appendectomy H/O colonoscopy 04/24/2019 Family History Mother , at age 83 Natural Father , at age 71 Heart attack Social History Smoking and tobacco/nicotine status: never used tobacco/nicotine Alcohol intake: never Substance/Drug Use: never Marital status: Current occupational status: retired Physical Exam 2 Const: COMMON NORMALS: no acute distress GENERAL APPEARANCE: cooperative and comfortable ORIENTATION/CONSCIOUSNESS: Yes awake HENMT: COMMON NORMALS: normocephalic, atraumatic and hearing grossly normal bilaterally HEAD & SCALP: normocephalic and atraumatic Resp: COMMON NORMALS: normal respiratory effort, No retractions, No use of accessory muscles and clear to auscultation bilaterally AUSCULTATION: clear to auscultation bilaterally Cardio: COMMON NORMALS: regular rate, regular rhythm and No murmurs present (Cardio) RATE: regular rate RHYTHM: regular rhythm GI: COMMON NORMALS: Soft to palpation and No hepatosplenomegaly present A USCULTATION: Yes normoactive bowel sounds PALPATION: Yes Soft to palpation, No Tenderness to palpation present (GI), No Guarding due to palpation present (GI) and Yes No hepatosplenomegaly present Extremity: COMMON NORMALS: normal to inspection, capillary refill normal, no clubbing, cyanosis or edema, no calf tenderness and no pedal edema Skin: COMMON NORMALS: no rashes or lesions noted GENERAL SKIN EXAM: no rashes or lesions noted Course 2 Vital Signs: Vital signs: Vital Signs Temperature 98.5 F 11/09/23 16:48 Pulse Rate 106 H 11/09/23 16:48 Respiratory Rate 17 11/09/23 11:48 Blood Pressure 168/67 11/09/23 16:48 Pulse Oximetry 91 11/09/23 16:48 Oxygen Delivery Me thod Room Air 11/09/23 04:00 MDM - Male Medical Decision Making Patient arrives with cystitis and bladder outlet obstruction. After arrival found that the patient actually is on hospice. Admit discussed with hospitalist. Orders written Medical Records I reviewed the patient's medical records. Lab Data I reviewed the patient's lab results. 11/09/23 04:34 11/09/23 04:34 Radiology Impressions Abdomen/Pelvis CT 11/08/23 19:08 IMPRESSION: 1. Wall thickening and perienteric haziness of the distal ileum compatible with a nonspecific enteritis. 2. Relative hyperdensity within the mid SMA with mild prominence of the vessel, indeterminate though raising the question of thrombus. Consider correlation with serum lactate and CT angiography to exclude bowel ischemia. 3. Possible cystitis. 4. Small left-sided pleural effusion. ADDENDUM: 11/08/232018 The findings were verbally communicated by telephone with Dr. Camara at 8:18 PM PIANO PROFESSOR on 11/08/2023. The findings were acknowledged and understood. Abdomen/Pelvis CTA 11/08/23 20:15 IMPRESSION: 1. 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 No aneurysmal dilatation or dissection. 2. The SMA is patent with no significant stenosis or thrombus. The celiac trunk is also patent with no significant stenosis or thrombus. 3. 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 Laboratory Results WBC 6.74 10^3/uL (3.29-11.43) 11/08/23 14:56 RBC 3.42 10^6/uL (3.85-5.65) L 11/08/23 14:56 Hgb 10.20 g/dL (11.27-16.99) L 11/08/23 14:56 Hct 31.8 % (37-53) L 11/08/23 14:56 MCV 93.0 fl (82-101) 11/08/23 14:56 MCH 29.8 pg (27-33) 11/08/23 14:56 MCHC 32.1 g/dL (30-55) 11/08/23 14:56 RDW 13.7 % (12.1-15.1) 11/08/23 14:56 Plt Count 302 10^3/cmm (157-399) 11/08/23 14:56 MPV 9.4 fL (7.4-10.4) 11/08/23 14:56 Neut % (Auto) 81.1 % 11/08/23 14:56 Lymph % (Auto) 10.4 % 11/08/23 14:56 [place] % (Auto) 7.0 % 11/08/23 14:56 Eos % (Auto) 0.6 % 11/08/23 14:56 Baso % (Auto) 0.6 % 11/08/23 14:56 Neut # (Auto) 5.47 10^3/uL (1.8-7.7) 11/08/23 14:56 Lymph # (Auto) 0.7 10^3/uL (0.8-4.8) L 11/08/23 14:56 [place] # (Auto) 0.5 10^3/uL (0.2-0.9) 11/08/23 14:56 Eos # (Auto) 0.0 10^3/uL (0.0-0.8) 11/08/23 14:56 Baso # (Auto) 0.0 10^3/uL (0.0-0.1) 11/08/23 14:56 Nucleated RBC % (auto) 0 % 11/08/23 14:56 Nucleated RBCs # 0.0 /100WBC 11/08/23 14:56 Sodium 142 mmol/L (136-145) 11/08/23 14:56 Potassium 4.0 mmol/L (3.5-5.1) 11/08/23 14:56 Chloride 103 mmol/L (98-107) 11/08/23 14:56 Carbon Dioxide 24 mmol/L (22-29) 11/08/23 14:56 Anion Gap 19.0 (5-19) 11/08/23 14:56 BUN 16 mg/dL (8-23) 11/08/23 14:56 Creatinine 1.1 mg/dL (0.7-1.2) 11/08/23 14:56 GFR Calculation Not Reportable 11/08/23 14:56 Glucose 115 mg/dL (65-115) 11/08/23 14:56 Calculated Osmolality 296 mOsm/kg (285-295) H 11/08/23 14:56 Lactic Acid 5.1 mmol/L (0.5-2.2) H* 11/08/23 14:56 Calcium 9.2 mg/dL (8.5-10.5) 11/08/23 14:56 Total Bilirubin 0.4 mg/dL (0.15-1.2) 11/08/23 14:56 AST 16 U/L (0-40) 11/08/23 14:56 ALT < 5 U/L (0-41) 11/08/23 14:56 Alkaline Phosphatase 104 U/L (40-130) 11/08/23 14:56 NT-Pro-B Natriuret Pep 5328 pg/mL (0-450) H 11/08/23 14:56 Total Protein 7.4 g/dL (6.6-8.7) 11/08/23 14:56 Albumin 3.8 g/dL (3.5-5.2) 11/08/23 14:56 Globulin 3.6 g/dL (1.3-4.6) 11/08/23 14:56 Procalcitonin 0.07 ng/mL (0-0.5) 11/08/23 14:56 TSH 1.08 uIU/mL (0.27-4.20) 11/08/23 14:56 Urine Color Yellow (Yellow) 11/08/23 16:19 Urine Appearance Clear (CLEAR) 11/08/23 16:19 Urine pH 6 (5-7) 11/08/23 16:19 Ur Specific [place] 1.015 (1.005-1.030) 11/08/23 16:19 Urine Protein Neg (Negative) 11/08/23 16:19 Urine Glucose (UA) Norm (Normal) 11/08/23 16:19 Urine Ketones 1+ (Negative) H 11/08/23 16:19 Urine Blood 2+ (Negative) H 11/08/23 16:19 Urine Nitrate Negative (Negative) 11/08/23 16:19 Urine Bilirubin Neg (Negative) 11/08/23 16:19 Urine Urobilinogen 1 mg/dL (Negative) H 11/08/23 16:19 Ur Leukocyte Esterase 1+ (Negative) H 11/08/23 16:19 Urine RBC 0-4 /hpf (0-2) H 11/08/23 16:19 Urine WBC 5-10 /hpf (0-5) H 11/08/23 16:19 Ur Squamous Epith Cells 0-4 /hpf (0-5) H 11/08/23 16:19 Amorphous Sediment Not Reportable 11/08/23 16:19 Urine Bacteria Trace /hpf (NONE) 11/08/23 16:19 All radiology interpretation(s) finalized by discharge Discharge Plan Discharge Patient Disposition: Admitted As Inpatient Admit Provider: Emani García Clinical Impression: Rhabdomyolysis, Urinary tract infection, Acute retention of urine, Elevated lactic acid level, Parkinson's disease, 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
--- NOTE | 2023-11-08 15:51 | PC.PHAR ---
Addendum entered by Mireya Aguirre 11/08/23 16:14: pts verified pts medications-states she gives the pt rytary 61.25-245mg er one cap qid ext shows last filled 07/28/23 90d/s and rytary 23.75-95mg er gives 2 caps po qid ext shows last filled 09/17/23 90d/s 1 cap five times a day-pts states the pts hctz 12.5mg daily filled 10/19/23 30d/s was dced-pts states the pts lasix was increased to 40mg daily filled 11/06/23 30d/s states he was on 20mg daily Original Note: pt is from [place] [phone]-loyd quinones from [place] states the pts gives the pt his medications-waiting for pts to get back from ct scan to verify pts meds
--- NOTE | 2023-11-08 16:01 | ECG_ITS ---
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 Measurements Intervals [place] Rate: 88 P: -35 AK: 130 QRS: -39 QRSD: 98 T: 64 QT: 339 QTc: 410 Interpretive Statements SINUS RHYTHM LEFT AXIS DEVIATION [QRS AXIS < -30] SEPTAL MYOCARDIAL INFARCTION , PROBABLY OLD [40+ ms Q WAVE IN V1/V2] Compared to ECG 04/04/2023 04:27:56 Left-axis deviation now present Incomplete right bundle-branch block no longer present Myocardial infarct finding still present Electronically Signed On 11-10-2023 23:18:30 OYSTER HARVESTER by Memo Zarate M.D. [email or web address]
[2023-11-08 16:09] LABS: Basophils % 0.6 %; Eosinophils % 0.6 %; Hematocrit 31.8 % (37-53); Lymphocytes # 0.7 10^3/uL (0.8-4.8); Lymphocytes % 10.4 %; Mean Corpuscular HGB Conc 32.1 g/dL (30-55); Mean Corpuscular Hemoglobin 29.8 pg (27-33); Mean Platelet Volume 9.4 fL (7.4-10.4); Monocytes # 0.5 10^3/uL (0.2-0.9); Neutrophils # 5.47 10^3/uL (1.8-7.7); Neutrophils % 81.1 %; Nucleated Red Blood Cells % 0 %; Platelet Count 302 10^3/cmm (157-399); Red Blood Count 3.42 10^6/uL (3.85-5.65); Red Cell Distribution Width 13.7 % (12.1-15.1); White Blood Count 6.74 10^3/uL (3.29-11.43)
[2023-11-08 16:24] VITALS: BP 132/104; PULSE 87; RESP 16; O2SAT 96
[2023-11-08 16:35] LABS: Alanine Aminotransferase < 5 U/L (0-41); Albumin Level 3.8 g/dL (3.5-5.2); Alkaline Phosphatase 104 U/L (40-130); Aspartate Amino Transferase 16 U/L (0-40); Blood Urea Nitrogen 16 mg/dL (8-23); Calcium 9.2 mg/dL (8.5-10.5); Carbon Dioxide 24 mmol/L (22-29); Chloride 103 mmol/L (98-107); Globulin 3.6 g/dL (1.3-4.6); Glucose 115 mg/dL (65-115); Osmolality Calculated 296 mOsm/kg (285-295); Sodium 142 mmol/L (136-145); Total Bilirubin 0.4 mg/dL (0.15-1.2); Total Protein 7.4 g/dL (6.6-8.7)
[2023-11-08 16:36] LABS: Lactic Sepsis W/Reflex 5.1 mmol/L (0.5-2.2)
[2023-11-08 17:10] LABS: Specific Gravity, Urine 1.015 (1.005-1.030); Urine Appearance Clear (CLEAR); Urine Color Yellow (Yellow); pH Urine 6 (5-7)
[2023-11-08 17:11] LABS: Add Urine Culture? No; Add Urine Microscopic? YES; Bacteria Urine TRACE /hpf; Bilirubin Urine Neg (Negative); Blood Urine 2+ (Negative); Glucose Urine UA Norm (Normal); Ketones Urine 1+ (Negative); Leukocyte Esterase Urine 1+ (Negative); Nitrate Urine Negative (Negative); Protein Urine Neg (Negative); RBC Urine 0-4 /hpf (0-2); Squamous Epithelial Cell Urine 0-4 /hpf (0-5); Urobilinogen Urine 1 mg/dL (Negative)
[2023-11-08] MEDS: meropenem 1,000 MG in sodium chloride 0.9% (plus) 50 ML 100 MG IV (17:15)
[2023-11-08] MEDS: sodium chloride 0.9% 1,000 ML 999 ML IV (17:16)
[2023-11-08 17:53] LABS: Reflex Lactate Order REFLEX LACTIC ORDERD
--- NOTE | 2023-11-08 18:33 | PC.NURSE ---
RN into room to change pt into gown. pt administered B-12, amentadine, rytary at 1848 with applesauce. These dosages match those ordered in the DEC.
[2023-11-08 18:45] LABS: Lactic Acid level (Lactate) 0.7 mmol/L (0.5-2.2)
[2023-11-08 18:50] VITALS: BP 163/66; PULSE 98; RESP 16; O2SAT 94
--- NOTE | 2023-11-08 19:01 | PC.NURSE ---
Assumed care from KARMA Pal at this time.
--- NOTE | 2023-11-08 19:02 | PC.NURSE ---
Dayshift ER nurse KARMA Pal called report to receiving nurse on Med-surg floor. Patient to be transferred up to floor after shift change.
--- NOTE | 2023-11-08 19:07 | P.HP_ITS ---
Providers/Chief Complaint 2 Admitting Physician: Emani García MD Primary Care Provider: Gianna Liu MD Chief Complaint: uti History of Present Illness Deng Hunt is a 82 year old male with history of Parkinson's, for last 3 months Sinemet dose has been changed to 4 times a day, from assisted living, finished 7-day treatment of Bactrim for UTI brought him in because he she thinks his symptoms are getting worse he is more fidgety, getting confused experiencing visual hallucination, no fever no nausea vomiting. is stating that last night he started yelling and cried for help he is very anxious and getting paranoid. No signs of stroke. No history of seizure. At the time of evaluation patient is experiencing course tremors at baseline I do believe lactic acid is secondary to that I do not see any signs of sepsis yet no fever tachypnea tachycardia no leukocytosis or endorgan damage, requested CT abdomen pelvis without contrast is concerned that there is some infection around his eyes I will start him on bacterial conjunctivitis eyedrop treatment Tell the of my concern is related to excessive dopamine with 4 times a day Sinemet dose Review of Systems 2 General: Reports: ROS unobtainable due to medical condition Medications/Allergies Home Medications Medication Instructions Recorded Confirmed Last Taken Type amantadine HCl 100 mg tablet 100 mg PO TID@08,12,03/28/23 11/08/23 11/08/23 History cyanocobalamin (vitamin B-12) 1,000 mcg PO BEDTIME 03/28/23 11/08/23 08/26/23 History 1,000 mcg tablet (Vitamin B-12) mirtazapine 15 mg tablet 15 mg PO BEDTIME 03/28/23 11/08/23 11/07/23 History fludrocortisone 0.1 mg tablet 0.1 mg PO BID #60 tabs 04/04/23 11/08/23 11/08/23 Rx selegiline HCl 5 mg capsule 5 mg PO QAM 04/04/23 11/08/23 11/08/23 History memantine 10 mg tablet 10 mg PO BID 05/06/23 11/08/23 11/08/23 History silodosin 8 mg capsule 8 mg PO DAILY #30 caps 05/06/23 11/08/23 08/27/23 Rx carbidopa ER 61.25 mg-levodopa 245 1 cap PO QID #240 caps 07/17/23 11/08/23 08/27/23 Rx mg capsule,extended release (Rytary) carbidopa ER 23.75 mg-levodopa 95 2 cap PO QID 11/08/23 11/08/23 11/08/23 History mg capsule,extended release (Rytary) furosemide 40 mg tablet 40 mg PO QAM 11/08/23 11/08/23 11/08/23 History potassium chloride 10 mEq 10 meq PO QAM 11/08/23 11/08/23 11/08/23 History tablet,extended release sulfamethoxazole 800 1 tab PO BID 11/08/23 11/08/23 11/08/23 History mg-trimethoprim 160 mg tablet Allergies Allergy/AdvReac Type Severity Reaction Status Date / Time No Known Allergies Allergy Verified 11/08/23 16:08 PFSH Acute 2 PFSH: Medical History Near syncope Orthostatic hypotension Fall Laceration of head Orthostatic hypotension Dysphagia BPH loc w urin obs/LUTS Parkinson's disease (tremor, stiffness, slow motion, unstable posture) Sleep apnea GERD (gastroesophageal reflux disease) BPH (benign prostatic hyperplasia) Urinary retention Parkinson disease Surgical History History of appendectomy H/O colonoscopy 04/24/2019 Family History Mother , at age 83 Natural Father , at age 71 Heart attack Social History Smoking and tobacco/nicotine status: never used tobacco/nicotine Alcohol intake: never Substance/Drug Use: never Marital status: Current occupational status: retired Vitals/I&O/Wt Last Vital Signs Temp 98.8 F 11/08/23 15:25 Pulse 98 11/08/23 18:50 Resp 16 11/08/23 18:50 BP 163/66 11/08/23 18:50 Pulse Ox 94 11/08/23 18:50 O2 Del Method Room Air 11/08/23 15:25 Weight last 48 hrs Weight 90.718 kg Physical Exam 2 Narrative: Coarse tremors Visual hallucination Pleasant and cooperative Dehydrated Abdomen soft GCS 15 Nonfocal neuroexam Akathisia Wearing adult diapers Patient oriented to himself only Data 11/08/23 14:56 11/08/23 14:56 A&P Assessment and plan (1) Dysphagia: (2) GERD (gastroesophageal reflux disease): (3) Nocturnal polyuria: (4) BPH loc w urin obs/LUTS: (5) Obstructive sleep apnea (adult) (pediatric): (6) UTI (urinary tract infection): (7) Extrapyramidal and movement disorder: Plan Dopaminergic XX extraparametal symptoms with akathisia, hallucination, coarse tremors I will hold his carbidopa levodopa for tonight Give him amantadine, benztropine, antihistamine and benzodiazepine Lactic acid is related coarse tremors I do not appreciate any signs of sepsis Continue IV fluids Will give him bacterial blepharitis conjunctivitis treatment Patient is DO NOT RESUSCITATE DO NOT INTUBATE Does have chronic dysphagia uses pur?ed thickened diet at the bedside Attestations 2 Medical Necessity Statement*: Anticipate discharge within 48 hours Diagnoses Dysphagia R13.10 GERD (gastroesophageal reflux disease) K21.9 Nocturnal polyuria R35.81 BPH loc w urin obs/LUTS N40.1 Obstructive sleep apnea (adult) (pediatric) G47.33 UTI (urinary tract infection) N39.0 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
--- NOTE | 2023-11-08 19:08 | CTR_ITS ---
PROCEDURE INFORMATION: Exam: CT Abdomen And Pelvis Without Contrast Exam date and time: 11/08/2023 7:23 PM Age: 82 years old Clinical indication: Condition or disease; Other: UTI; Additional info: [place] UTI TECHNIQUE: Imaging protocol: Computed tomography of the abdomen and pelvis without contrast. Radiation optimization: All CT scans at this facility use at least one of these dose optimization techniques: automated exposure control; mA and/or kV adjustment per patient size (includes targeted exams where dose is matched to clinical indication); or iterative reconstruction. COMPARISON: CT chest abdpel w/*[id number] 05/17/2021 10:39 AM RADIATION DOSE METRICS: Total DLP (mGy-cm): 553 FINDINGS: Lungs: Small left-sided pleural effusion with subsegmental atelectasis. Diaphragm: No evidence of diaphragmatic defect. Liver: No evidence of focal hepatic lesion within limitation of a noncontrast exam. Gallbladder and bile ducts: There is cholelithiasis. No inflammatory changes to suggest acute cholecystitis. No intrahepatic or extrahepatic biliary dilatation. Pancreas: Grossly unremarkable. Spleen: Grossly unremarkable. Adrenal glands: Grossly unremarkable. Kidneys and ureters: No gross renal parenchymal abnormality. No evidence of hydronephrosis or ureteral stone. Stomach and bowel: There is wall thickening and perienteric haziness of the distal ileum compatible with a nonspecific enteritis. No evidence of pneumatosis. No evidence of bowel obstruction. Small fat containing right-sided inguinal hernia with protrusion of a bowel loop into the region of the deep inguinal ring. Appendix: The appendix is not visualized, however there are no findings to suggest appendicitis. Intraperitoneal space: No evidence of free air or fluid collection. Vasculature: Moderate-severe atherosclerosis without evidence of aneurysmal dilitation of abdominal aorta. There is relative hyperdensity within the mid SMA with mild prominence of the vessel, indeterminate though raising the question of thrombus (for example, image 28 of the axial series 3). Consider correlation with serum lactate and CT angiography to exclude thrombosis. Lymph nodes: No evidence of adenopathy. Urinary bladder: Mild diffuse bladder wall thickening/haziness. Otherwise grossly unremarkable. Reproductive: Grossly unremarkable. Bones/joints: No evidence of acute fracture or aggresive osseous lesion. Soft tissues: No evidence of fluid collection or hematoma in the superficial soft tissues. CT/CT abdomen pelvis wo con [id number] IMPRESSION: 1. Wall thickening and perienteric haziness of the distal ileum compatible with a nonspecific enteritis. 2. Relative hyperdensity within the mid SMA with mild prominence of the vessel, indeterminate though raising the question of thrombus. Consider correlation with serum lactate and CT angiography to exclude bowel ischemia. 3. Possible cystitis. 4. Small left-sided pleural effusion.
[2023-11-08] MEDS: sodium chloride 0.9% 1,000 ML 75 ML IV (19:12)
[2023-11-08 20:00] VITALS: BP 158/67; PULSE 92; RESP 18; TEMP 36.9; O2SAT 96
[2023-11-08 20:07] LABS: NT Pro B Type Natriuretic Pept 5328 pg/mL (0-450); Procalcitonin 0.07 ng/mL (0-0.5)
--- NOTE | 2023-11-08 20:15 | CTR_ITS ---
PROCEDURE INFORMATION: Exam: CTA Chest With Contrast CTA Abdomen and Pelvis With Contrast Exam date and time: 11/09/2023 1:29 AM Age: 82 years old Clinical indication: Other: See below; Additional info: Sma thrombis, acute mesenteric ischemia, ordered with oral contrast, changed to no oral because oral contrast would TECHNIQUE: Imaging protocol: Computed tomographic angiography of the chest with contrast. Exam focused on the arteries. Computed tomographic angiography of the abdomen and pelvis with contrast. Exam focused on the arteries. 3D rendering (Not supervised by radiologist): MIP and/or 3D reconstructed images were created by the technologist. Radiation optimization: All CT scans at this facility use at least one of these dose optimization techniques: automated exposure control; mA and/or kV adjustment per patient size (includes targeted exams where dose is matched to clinical indication); or iterative reconstruction. Contrast material: OMNI 350; Contrast volume: 100 ml; Contrast route: INTRAVENOUS (IV); COMPARISON: CT abdomen pelvis wo con [id number] 11/08/2023 7:23 PM RADIATION DOSE METRICS: Total DLP (mGy-cm): 386.28 FINDINGS: VASCULATURE: Pulmonary arteries: Normal. No pulmonary emboli. Aorta: Atherosclerotic disease of the abdominal aorta and iliac arteries. No aneurysmal dilatation or dissection. Celiac trunk and mesenteric arteries: No occlusion or significant stenosis. Renal arteries: No occlusion or significant stenosis. Right iliac arteries: No occlusion or significant stenosis. Left iliac arteries: No occlusion or significant stenosis. CHEST: Lungs: Small bilateral pleural effusions with atelectatic changes of the left lung base. Pleural spaces: See Lungs finding. Heart: Unremarkable. No cardiomegaly. No pericardial effusion. ABDOMEN AND PELVIS: Liver: No mass. Gallbladder and bile ducts: Unremarkable. No calcified stones. No ductal dilation. Pancreas: Unremarkable. No mass. No ductal dilation. Spleen: Unremarkable. No splenomegaly. Adrenal glands: Unremarkable. No mass. Kidneys and ureters: Unremarkable. No solid mass. No hydronephrosis. Stomach and bowel: Unremarkable. No obstruction. No mucosal thickening. Appendix: The appendix is not visualized but there are no secondary signs of acute appendicitis. Intraperitoneal space: Unremarkable. No free air. No significant fluid collection. Urinary bladder: Unremarkable. No mass. Reproductive: Unremarkable as visualized. Lymph nodes: Unremarkable. No enlarged lymph nodes. Bones/joints: Unremarkable. No acute fracture. Soft tissues: Unremarkable. CT/CT angio abdomen pelvis [id number] IMPRESSION: 1. 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 No aneurysmal dilatation or dissection. 2. The SMA is patent with no significant stenosis or thrombus. The celiac trunk is also patent with no significant stenosis or thrombus. 3. 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
[2023-11-08 22:34] LABS: Thyroid Stimulating Hormone 1.08 uIU/mL (0.27-4.20)
[2023-11-08] MEDS: diphenhydrAMINE 50 mg/mL SDV 1mL 12.5 MG IVP (22:35)
[2023-11-08] MEDS: diphenhydrAMINE 50 mg/mL SDV 1mL 25 MG IVP (22:35)
[2023-11-08] MEDS: benztropine 1 mg/mL SDV 2 mL IM (22:45)
[2023-11-08] MEDS: ciprofloxacin 0.3% Op Soln 2.5 mL Btl 1 DROP EYE-BOTH (22:50)
--- NOTE | 2023-11-08 23:12 | PC.NURSE ---
Patient has PO cogentin ordered Q6H as well as remeron PO at bedtime. This nurse performed nursing dysphagia screening prior to administering medications; patient began coughing shortly after swallowing water. Held PO meds and notified Dr Camara.
[2023-11-08] MEDS: LORazepam 2 mg/mL INJ 10 mL MDV 1 MG IM (23:26)
[2023-11-08] MEDS: haloperidol inj 5 mg/mL INJ 1 mL 2 MG IM (23:44)
[2023-11-08] MEDS: LORazepam 2 mg/mL INJ 10 mL MDV 1 MG IVP (23:52)
[2023-11-09] VITALS: BP 124/60; PULSE 99; RESP 18; TEMP 37.2; O2SAT 93
[2023-11-09 00:29] LABS: Alanine Aminotransferase < 5 U/L (0-41); Albumin Level 3.3 g/dL (3.5-5.2); Alkaline Phosphatase 93 U/L (40-130); Anion Gap 19.2 (5-19); Aspartate Amino Transferase 21 U/L (0-40); Blood Urea Nitrogen 16 mg/dL (8-23); Calcium 8.9 mg/dL (8.5-10.5); Carbon Dioxide 21 mmol/L (22-29); Chloride 107 mmol/L (98-107); Globulin 3.1 g/dL (1.3-4.6); Glucose 64 mg/dL (65-115); Lactate Dehydrogenase 170 U/L (135-225); Osmolality Calculated 295 mOsm/kg (285-295); Potassium 4.2 mmol/L (3.5-5.1); Sodium 143 mmol/L (136-145); Total Bilirubin 0.5 mg/dL (0.15-1.2); Total Protein 6.4 g/dL (6.6-8.7)
[2023-11-09 00:34] LABS: Creatine Phosphokinase 759 U/L (39-308)
[2023-11-09] MEDS: iohexol 350 mg/mL 500 mL Btl (per mL) IV (01:48)
[2023-11-09] MEDS: diphenhydrAMINE 50 mg/mL SDV 1mL 25 MG IVP (03:02)
[2023-11-09 04:00] VITALS: BP 157/69; PULSE 58; RESP 18; TEMP 36.4; O2SAT 96
--- NOTE | 2023-11-09 04:35 | PM.CCNAC ---
Critical Care Event Note The high probability of a clinically significant, sudden or life threatening deterioration of the patient's [] system(s) required my full and direct attention, intervention and personal management. The critical care time is as shown. This time is in addition to time spent performing any reported procedures but includes the following: [x] Data and vital sign review and interpretation [x] Patient assessment, examination and intervention [x] Documentation [x] Medication orders and management Critical Care Time Code activated: No Critical Care Time (min): 35 Additional information about critical care time: CT/CT abdomen pelvis wo con [id number] IMPRESSION: 1. Wall thickening and perienteric haziness of the distal ileum compatible with a nonspecific enteritis. 2. Relative hyperdensity within the mid SMA with mild prominence of the vessel, indeterminate though raising the question of thrombus. Consider correlation with serum lactate and CT angiography to exclude bowel ischemia. 3. Possible cystitis. 4. Small left-sided pleural effusion. -Spoke to v RADS, radiology, concerns for mesenteric ischemia, on examination outpatient blood work he has lactic acidosis potentially related to dehydration, but no other good source, the concern was for acute mesenteric ischemia -CT angiogram of the abdomen was ordered CT/CT angio abdomen pelvis [id number] IMPRESSION: 1. 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 No aneurysmal dilatation or dissection. 2. The SMA is patent with no significant stenosis or thrombus. The celiac trunk is also patent with no significant stenosis or thrombus. 3. 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 -Patient was examined as he was having severe tremors, severe extraparametal symptoms, ? Was given 1 mg of Ativan, without improvement and given 2 mg IM Haldol without improvement, ? Examined patient, having severe tremors, rigidity, low-grade fever, encephalopathic, not following commands ? Possible stage 2-3 neuroleptic malignant syndrome? -Given another milligram of IV push Ativan, examined again, much more calm, tremors have resolved rigidity has resolved, -Spoke to patient's in detail, discussed my concerns for possible neuroleptic malignant syndrome we will monitor him closely he responded to Ativan he might require dantrolene depending on his clinical progress, or we might consider further doses of Ativan -Discussed CODE STATUS, she tells me that Richard would not want to be intubated,, would not want CPR he want to want to be DNR/DNI, she wants him to be a full code that is her wishes but not what what Richard would want, after discussing the risk and benefits of all options she voiced understanding, all question answered, she wants to go with what richard would want DNR/DNI Coding Level of Care Code Acute Code for Didi Hendricks
[2023-11-09 05:13] LABS: Basophils % 0.5 %; Eosinophils # 0.1 10^3/uL (0.0-0.8); Eosinophils % 1.1 %; Hematocrit 27.3 % (37-53); Lymphocytes % 18.1 %; Mean Corpuscular HGB Conc 31.1 g/dL (30-55); Mean Corpuscular Hemoglobin 29.1 pg (27-33); Mean Corpuscular Volume 93.5 fl (82-101); Mean Platelet Volume 9.2 fL (7.4-10.4); Monocytes # 0.5 10^3/uL (0.2-0.9); Monocytes % 8.1 %; Neutrophils # 4.09 10^3/uL (1.8-7.7); Nucleated Red Blood Cells % 0 %; Platelet Count 225 10^3/cmm (157-399); Red Blood Count 2.92 10^6/uL (3.85-5.65); Red Cell Distribution Width 13.5 % (12.1-15.1); White Blood Count 5.68 10^3/uL (3.29-11.43)
[2023-11-09 05:38] LABS: Alanine Aminotransferase < 5 U/L (0-41); Albumin Level 2.9 g/dL (3.5-5.2); Alkaline Phosphatase 84 U/L (40-130); Aspartate Amino Transferase 25 U/L (0-40); Blood Urea Nitrogen 17 mg/dL (8-23); Calcium 8.3 mg/dL (8.5-10.5); Carbon Dioxide 23 mmol/L (22-29); Chloride 110 mmol/L (98-107); Globulin 2.9 g/dL (1.3-4.6); Glucose 50 mg/dL (65-115); Magnesium 2.1 mg/dL (1.7-2.3); Osmolality Calculated 295 mOsm/kg (285-295); Sodium 143 mmol/L (136-145); Total Bilirubin 0.5 mg/dL (0.15-1.2); Total Protein 5.8 g/dL (6.6-8.7)
[2023-11-09 05:41] LABS: Lactic Sepsis W/Reflex 0.6 mmol/L (0.5-2.2)
--- NOTE | 2023-11-09 07:38 | PC.NURSE ---
Pt began severely convulsing in bed. Called Dr Camara, he ordered 1mg ativan IM. Administered, patient continued to convulse and tremor severely. Called Dr Camara again, he came to see the patient and and ordered haldol as well as IVP ativan. Administered medications and patient began calming down, eventually laying still with his eyes closed. Patients respirations were shallow, uneven, and he was breathing at 11 breaths a minute. Patient was placed on telemetry, continuous pulse oximetry, and suction was set up in the room. Patient has had stable vitals since the events took place. Bed rails are padded and secure. currently at bedside, education and discussion was had regarded the patients current status, medications, and interventions.
[2023-11-09 08:00] VITALS: BP 135/64; PULSE 65; RESP 16; TEMP 36.8; O2SAT 97
--- NOTE | 2023-11-09 10:54 | PC.CHAP ---
Pastoral Care Encounter/Spiritual Assessment Type of Contact [] Declined project control manager visit [] Patient/Family/Request visit [] Outpatient visit [] Follow-up visit [] Physician referral [] Code/Alert [x] Routine visit [] Staff referral [] Actively dying [] Patient sleeping [x] Family support [] [] Out of room [] Palliative care [] [] Receiving care in room [] Pre-surgical visit [] Trauma [] Long length of stay [] ICU visit [] Other: Relational/Emotional Strength [x] Patient feels connected with others/family/visitors/staff [] Distress [] Loneliness/isolation [] Abandonment Spirituality of Patient [x] Person of Radha [x] Attends Mandaeism of their Radha [x] Believes in Prayer [x] Reads Bible or Evangelical materials [] There are Spiritual issues to be addressed Telephone Information Supervisor Interventions [x] Prayer [x Active listening [x] Non-anxious presence [x] Spiritual/emotional support [] Crisis/trauma care [] Spiritual counseling [] Bereavement support [] Provided bereavement packet [] Provided Bible/devotional materials [] Provided toy/stuffed animal, coloring book to patient or family member [] Provided Communion [] Anointing/[place] [] Salvation [x] Completed spiritual assessment [] Other: Impact on Illness or Injury [] Angry [] Fearful [] Anxious [] Often cries [] Exhaustion [] Unable to work [] Unable to attend spiritism [] Unable to walk/stand [] Unable to read [] Unable to drive [] Unable to eat/drink [] Unable to sleep [] Unable to be with family [] Patient intubated [] Other: Summary Time spent with patient 10 min
[2023-11-09] MEDS: meropenem 2,000 MG in sodium chloride 0.9% (100 ml) 100 ML 200 MG IV (11:02)
[2023-11-09] MEDS: ciprofloxacin 0.3% Op Soln 2.5 mL Btl 1 DROP EYE-BOTH ×3 (11:10→18:09)
[2023-11-09] MEDS: sodium chloride 0.9% 1,000 ML 75 ML IV (11:10)
--- NOTE | 2023-11-09 11:46 | PM.DCS ---
Discharge Providers Date of Admission: 11/08/23 17:32 Date of Discharge: November 09, 2023 Attending Provider at Admission: Emani García MD Attending Provider at Discharge: Rona Perez MD Primary Care Provider: Gianna Liu MD Diagnoses at Discharge Discharge Diagnosis (1) Dysphagia: Status: Acute (2) GERD (gastroesophageal reflux disease): Status: Acute (3) Nocturnal polyuria: Status: Acute (4) BPH loc w urin obs/LUTS: Status: Acute (5) Obstructive sleep apnea (adult) (pediatric): Status: Acute (6) UTI (urinary tract infection): Status: Acute (7) Extrapyramidal and movement disorder: Status: Acute Reason for Visit Reason for Visit: uti Hospital Course Hospital Course 82-year-old male with a history of dementia, dysphagia, from assisted living, currently on palliative care, was being treated for UTI with Bactrim presented with chief complaint of worsening of fatigue lethargy and weakness. CT abdomen pelvis was done which showed cystitis, there is no concern for mesenteric ischemia his lactic acid was related to his significant tremors he was experiencing due to extrapyramidal symptoms akathisia I gave him benztropine, propranolol, Benadryl which helped him to rest better overnight, patient is extremely lethargic and fatigued I did discuss this case with Dr. Taylor who agreed with cutting back on doses of Sinemet to twice a day, considering worsening despite treatment of UTI is agreeable to transition him to hospice care at the assisted living facility. During this hospitalization I gave him IV antibiotics, he remained afebrile no leukocytosis, given ciprofloxacin eyedrops which improved his crusting does not want PEG tube placement or IV nutrition. Physical Exam Narrative: Resting tremors Coarse tremors Neuroexam limited Eye crusting improving Abdomen soft Dehydrated Dry mucous membrane Discharge Data Studies Completed and Pending Completed Studies During Hospitalization Category Date Time Status CT abdomen pelvis wo con [id number] Stat Cat Scan 11/08/23 19:[address] angio abdomen pelvis [id number] Stat Cat Scan 11/08/23 20:15 Completed Pending at discharge Category Date Time Status Blood Cultures ([facility]) Routine Lab 11/08/23 15:57 Received Blood Cultures ([facility]) Routine Lab 11/08/23 16:01 Received Radiology Impressions Abdomen/Pelvis CT 11/08/23 19:08 IMPRESSION: 1. Wall thickening and perienteric haziness of the distal ileum compatible with a nonspecific enteritis. 2. Relative hyperdensity within the mid SMA with mild prominence of the vessel, indeterminate though raising the question of thrombus. Consider correlation with serum lactate and CT angiography to exclude bowel ischemia. 3. Possible cystitis. 4. Small left-sided pleural effusion. ADDENDUM: 11/08/232018 The findings were verbally communicated by telephone with Dr. Camara at 8:18 PM DESKTOP PUBLISHING OPERATOR on 11/08/2023. The findings were acknowledged and understood. Abdomen/Pelvis CTA 11/08/23 20:15 IMPRESSION: 1. 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 No aneurysmal dilatation or dissection. 2. The SMA is patent with no significant stenosis or thrombus. The celiac trunk is also patent with no significant stenosis or thrombus. 3. 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 Laboratory Results WBC 5.68 10^3/uL (3.29-11.43) 11/09/23 04:34 RBC 2.92 10^6/uL (3.85-5.65) L 11/09/23 04:34 Hgb 8.50 g/dL (11.27-16.99) L 11/09/23 04:34 Hct 27.3 % (37-53) L 11/09/23 04:34 MCV 93.5 fl (82-101) 11/09/23 04:34 MCH 29.1 pg (27-33) 11/09/23 04:34 MCHC 31.1 g/dL (30-55) 11/09/23 04:34 RDW 13.5 % (12.1-15.1) 11/09/23 04:34 Plt Count 225 10^3/cmm (157-399) 11/09/23 04:34 MPV 9.2 fL (7.4-10.4) 11/09/23 04:34 Neut % (Auto) 72.0 % 11/09/23 04:34 Lymph % (Auto) 18.1 % 11/09/23 04:34 [place] % (Auto) 8.1 % 11/09/23 04:34 Eos % (Auto) 1.1 % 11/09/23 04:34 Baso % (Auto) 0.5 % 11/09/23 04:34 Neut # (Auto) 4.09 10^3/uL (1.8-7.7) 11/09/23 04:34 Lymph # (Auto) 1.0 10^3/uL (0.8-4.8) 11/09/23 04:34 [place] # (Auto) 0.5 10^3/uL (0.2-0.9) 11/09/23 04:34 Eos # (Auto) 0.1 10^3/uL (0.0-0.8) 11/09/23 04:34 Baso # (Auto) 0.0 10^3/uL (0.0-0.1) 11/09/23 04:34 Nucleated RBC % (auto) 0 % 11/09/23 04:34 Nucleated RBCs # 0.0 /100WBC 11/09/23 04:34 Sodium 143 mmol/L (136-145) 11/09/23 04:34 Potassium 4.0 mmol/L (3.5-5.1) 11/09/23 04:34 Chloride 110 mmol/L (98-107) H 11/09/23 04:34 Carbon Dioxide 23 mmol/L (22-29) 11/09/23 04:34 Anion Gap 14.0 (5-19) 11/09/23 04:34 BUN 17 mg/dL (8-23) 11/09/23 04:34 Creatinine 0.9 mg/dL (0.7-1.2) 11/09/23 04:34 GFR Calculation Not Reportable 11/09/23 04:34 Glucose 50 mg/dL (65-115) L 11/09/23 04:34 Calculated Osmolality 295 mOsm/kg (285-295) 11/09/23 04:34 Lactic Acid 0.6 mmol/L (0.5-2.2) 11/09/23 04:34 Lactic Acid (Sepsis) 0.7 mmol/L (0.5-2.2) 11/08/23 18:19 Calcium 8.3 mg/dL (8.5-10.5) L 11/09/23 04:34 Magnesium 2.1 mg/dL (1.7-2.3) 11/09/23 04:34 Total Bilirubin 0.5 mg/dL (0.15-1.2) 11/09/23 04:34 AST 25 U/L (0-40) 11/09/23 04:34 ALT < 5 U/L (0-41) 11/09/23 04:34 Alkaline Phosphatase 84 U/L (40-130) 11/09/23 04:34 Lactate Dehydrogenase 170 U/L (135-225) 11/08/23 23:58 Creatine Kinase 759 U/L (39-308) H* 11/08/23 23:58 NT-Pro-B Natriuret Pep 5328 pg/mL (0-450) H 11/08/23 14:56 Total Protein 5.8 g/dL (6.6-8.7) L 11/09/23 04:34 Albumin 2.9 g/dL (3.5-5.2) L 11/09/23 04:34 Globulin 2.9 g/dL (1.3-4.6) 11/09/23 04:34 Procalcitonin 0.07 ng/mL (0-0.5) 11/08/23 14:56 TSH 1.08 uIU/mL (0.27-4.20) 11/08/23 14:56 Urine Color Yellow (Yellow) 11/08/23 16:19 Urine Appearance Clear (CLEAR) 11/08/23 16:19 Urine pH 6 (5-7) 11/08/23 16:19 Ur Specific [place] 1.015 (1.005-1.030) 11/08/23 16:19 Urine Protein Neg (Negative) 11/08/23 16:19 Urine Glucose (UA) Norm (Normal) 11/08/23 16:19 Urine Ketones 1+ (Negative) H 11/08/23 16:19 Urine Blood 2+ (Negative) H 11/08/23 16:19 Urine Nitrate Negative (Negative) 11/08/23 16:19 Urine Bilirubin Neg (Negative) 11/08/23 16:19 Urine Urobilinogen 1 mg/dL (Negative) H 11/08/23 16:19 Ur Leukocyte Esterase 1+ (Negative) H 11/08/23 16:19 Urine RBC 0-4 /hpf (0-2) H 11/08/23 16:19 Urine WBC 5-10 /hpf (0-5) H 11/08/23 16:19 Ur Squamous Epith Cells 0-4 /hpf (0-5) H 11/08/23 16:19 Amorphous Sediment Not Reportable 11/08/23 16:19 Urine Bacteria Trace /hpf (NONE) 11/08/23 16:19 Vitals Last Vital Signs Temp 98.3 F 11/09/23 08:00 Pulse 65 11/09/23 08:00 Resp 16 11/09/23 08:00 BP 135/64 11/09/23 08:00 Pulse Ox 97 11/09/23 08:00 O2 Del Method Room Air 11/09/23 04:00 Discharge Plan Discharge Patient Disposition: Xfer SNF Condition: Stable Prescriptions: New benztropine 1 mg Tablet 0.5 mg PO Q12H Qty: 20 0RF propranolol 20 mg Tablet 10 mg PO BID Qty: 60 0RF levofloxacin 750 mg tablet 750 mg PO DAILY 5 Days Qty: 5 0RF Continued amantadine HCl 100 mg tablet 100 mg PO TID@,,19 Changed Rytary 23.75-95 mg capsule, extended release 2 cap PO BID Qty: 20 0RF Rx Instructions: divide evenly over waking hours Discontinued Rytary 61.25-245 mg capsule, extended release 1 cap PO QID Qty: 240 2RF Rx Instructions: divide evenly over waking hours mirtazapine 15 mg tablet 15 mg PO BEDTIME cyanocobalamin (vitamin B-12) [Vitamin B-12] 1,000 mcg Tablet 1,000 mcg PO BEDTIME selegiline HCl 5 mg capsule 5 mg PO QAM fludrocortisone 0.1 mg tablet 0.1 mg PO BID Qty: 60 0RF memantine 10 mg Tablet 10 mg PO BID silodosin 8 mg capsule 8 mg PO DAILY Qty: 30 0RF Rx Instructions: must administer with a meal/food furosemide 40 mg tablet 40 mg PO QAM Rx Instructions: replaces 20mg dose potassium chloride 10 mEq tablet extended release 10 meq PO QAM sulfamethoxazole-trimethoprim 800-160 mg tablet 1 tab PO BID Rx Instructions: for 7 days (rx filled 11/02/23) Discharge Orders: Discharge Order (Routine); Ordered 11/09/23 Ordered By: Rona Perez Referrals: Gianna Liu MD [Primary Care Provider] - Discharge Attestations Time Spent in Discharge Care*: greater than 30 min Quality Metrics Clinical Quality Measures [ No reported AMI, CVA or VTE this stay] Coding Level of Care Code Acute Code for Chg Fwd Diagnoses Dysphagia R13.10 GERD (gastroesophageal reflux disease) K21.9 Nocturnal polyuria R35.81 BPH loc w urin obs/LUTS N40.1 Obstructive sleep apnea (adult) (pediatric) G47.33 UTI (urinary tract infection) N39.0 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
[2023-11-09 11:48] VITALS: BP 129/54; PULSE 89; RESP 17; TEMP 37.1; O2SAT 95
--- NOTE | 2023-11-09 14:01 | PC.SOCIAL ---
Pg 2 IMM Explained to pt's Pg 2 IMM. No questions voiced. Provided pt a copy. Initialed, dated, & timed a copy & placed in chart.
--- NOTE | 2023-11-09 14:36 | PC.NURSE ---
Called report to Karen SON at [facility]. ground services instructor to fax med list to them.
[2023-11-09 15:59] VITALS: BP 168/67; PULSE 106; TEMP 36.9; O2SAT 91
[2023-11-09 16:48] VITALS: BP 168/67; PULSE 106; TEMP 36.9; O2SAT 91
--- NOTE | 2023-11-09 16:48 | PC.NURSE ---
Discharge Note Patient discharged to [facility] via EMS transportation accompanied by EMS personnel. Discharge instructions reviewed with patient and/or patient registration representative. Mobile pharmacy medications and/or prescriptions provided. Belongings/home medications returned.
== END 2023-11-09 18:30 | disposition home or self-care (01) ==
LOC: ER 16:31 → MEDSURG 21:33
PROVIDERS: Family Medicine; Admitting Provider Internal Medicine; Emergency Provider Family Medicine; PCP Family Medicine; Visit Provider Internal Medicine
DX: N39.0 Urinary tract infection, site not specified (principal); R13.10 Dysphagia, unspecified; K21.9 Gastro-esophageal reflux disease without esophagitis; R35.81 Nocturnal polyuria; N40.1 Benign prostatic hyperplasia with lower urinary tract symptoms; G25.9 Extrapyramidal and movement disorder, unspecified; G47.33 Obstructive sleep apnea (adult) (pediatric); N13.8 Other obstructive and reflux uropathy; G20.A1 Parkinson's disease without dyskinesia, without mention of fluctuations
CPT/HCPCS: 36415; 51702; 51798; 74174; 74176; 80048; 80053; 81001; 82550; 83605; 83615; 83735; 83880; 84145; 84443; 85025; 87040; 93005; 96365; 96372; 99285; G0378; J0515; J1200; J1630; J2060; J2185; J7030; Q9967